=== PATIENT | female | born 2000 | race Caucasian/White ===

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

== ENCOUNTER 2022-10-05 15:19 | Emergency (ER) | payer BC, SELFPAY ==
[2022-10-05 15:33] VITALS: PULSE 125; RESP 18; TEMP 38.1; O2SAT 96; BMI 20.3
--- NOTE | 2022-10-05 16:26 | XRR_ITS ---
PROCEDURE INFORMATION: Exam: XR Chest Exam date and time: 10/05/2022 4:35 PM Age: 21 years old Clinical indication: Fever; Additional info: Fevers TECHNIQUE: Imaging protocol: Radiologic exam of the chest. Views: 1 view. COMPARISON: CR XR chest 1V portable [id number] 07/31/2020 11:37 AM FINDINGS: Lungs: Unremarkable. No consolidation. Pleural spaces: Unremarkable. No pleural effusion. No pneumothorax. Heart/Mediastinum: Unremarkable. No cardiomegaly. Bones/joints: Unremarkable. XR/XR chest 1V portable [id number] IMPRESSION: No acute findings.
--- NOTE | 2022-10-05 16:27 | ED_ITS ---
Documented by User: HERMINIO Benton 10/06/22 07:10 HPI - Abdominal Pain General: Chief Complaint: Abdominal Pain Stated Complaint: fever/NVD Time Seen by Provider: 10/05/22 15:57 Source: patient Mode of arrival: ambulatory Limitations: no limitations History of Present Illness: Patient is a nice 21-year-old female presents to ED today with a complaint of right-sided abdominal pain, frequent nausea and vomiting, fevers of up to 103, diffuse body aches, generally feeling unwell over the past 3 days or so. Patient states she was seen at a walk-in clinic in [place] and referred to the ED for further evaluation. Patient states she has not been able to keep anything down secondary to nausea and vomiting. She does report fairly normal bowel movements. She is not complaining of any urinary symptoms at this time. She states she does have a history of pyelonephritis. Denies sick contacts. She has had a mild cough. No other URI-like symptoms. Associated Symptoms: Reports chills, fever(s), nausea and vomiting; Denies dysuria, hematochezia, hematemesis and melena Review of Systems Const: Reports: fever(s), chills and body aches ENMT: Denies: throat pain, odynophagia, ear or mastoid pain, nasal discharge, nasal congestion or sinus pain Card: Denies: chest pain Resp: Reports: non-productive cough; Denies: dyspnea GI: Reports: abdominal pain, nausea and vomiting; Denies: hematemesis, hematochezia or melena : Reports: flank pain; Denies: difficulty voiding, dysuria, urinary frequency, urinary urgency, urinary hesitancy or pelvic pain Musc: Denies: neck pain, extremity pain, joint pain or joint swelling Skin/Breast: Denies: rash Neuro: Denies: headache(s) or dizziness PFSH ED PFSH: Medical History Painful menstruation Surgical History No pertinent past surgical history Family History Denies family history of Diabetes CAD (coronary artery disease) Psychiatric illness Chronic kidney disease (CKD) Lung disease Cancer Hypertension Stroke Social History Smoking and tobacco status: never smoked Physical Exam Const: COMMON NORMALS: no limitations and well nourished GENERAL APPEARANC E: cooperative HENMT: FACE & SINUS: normal facial exam and sinuses nontender Neck/C-Spine: COMMON NORMALS: no lymphadenopathy and no meningeal signs Resp: COMMON NORMALS: clear to auscultation bilaterally AUSCULTATION: clear to auscultation bilaterally Cardio: COMMON NORMALS: regular rhythm RHYTHM: regular rhythm Neuro: MENINGEAL SIGNS: Yes no meningeal signs Course ED course: Care transferred to Shahida Zuñiga PA-C at 1700. Symptoms/presentation suspicious for pyelo but UA is currently pending for confirmation. She is tachycardic with low grade fevers and a white count of over 19,000. She has been started on IV fluids and has been given pain/nausea meds. ES Vital Signs: Vital signs: Vital Signs Temperature 99.6 F 10/05/22 19:00 Pulse Rate 112 H 10/05/22 19:00 Respiratory Rate 18 10/05/22 16:44 Blood Pressure 115/61 10/05/22 19:00 Pulse Oximetry 93 10/05/22 19:00 Oxygen Delivery Me thod Room Air 10/05/22 15:33 MDM - Abdominal Pain Lab Data 10/05/22 16:17 10/05/22 16:17 Labs/Radiology: Radiology Impressions Chest X-Ray 10/05/22 16:26 IMPRESSION: No acute findings. Laboratory Results WBC 19.9 10^3/uL (4.5-13.0) H 10/05/22 16:17 RBC 4.45 10^6/uL (4.1-5.3) 10/05/22 16:17 Hgb 15.1 g/dL (11.5-15.3) 10/05/22 16:17 Hct 42.7 % (37.0-47.0) 10/05/22 16:17 MCV 96.0 fl (81-99) 10/05/22 16:17 MCH 33.9 pg (28.0-34.0) 10/05/22 16:17 MCHC 35.4 g/dL (30.0-36.0) 10/05/22 16:17 RDW 11.9 % (12.1-15.1) L 10/05/22 16:17 Plt Count 223 10^3/cmm (130-400) 10/05/22 16:17 MPV 9.4 fL (7.4-10.4) 10/05/22 16:17 Neut % (Auto) 84.2 % 10/05/22 16:17 Lymph % (Auto) 6.9 % 10/05/22 16:17 Drew % (Auto) 7.7 % 10/05/22 16:17 Eos % (Auto) 0.3 % 10/05/22 16:17 Baso % (Auto) 0.2 % 10/05/22 16:17 Neut # (Auto) 16.74 10^3/uL (1.8-8.0) H 10/05/22 16:17 Lymph # (Auto) 1.4 10^3/uL (1.5-6.5) L 10/05/22 16:17 Drew # (Auto) 1.5 10^3/uL (0.2-0.9) H 10/05/22 16:17 Eos # (Auto) 0.1 10^3/uL (0.0-0.8) 10/05/22 16:17 Baso # (Auto) 0.0 10^3/uL (0.0-0.1) 10/05/22 16:17 Nucleated RBC % (auto) 0 % 10/05/22 16:17 Nucleated RBCs # 0.0 /100WBC 10/05/22 16:17 Sodium 127 mmol/L (136-145) L 10/05/22 16:17 Potassium 3.5 mmol/L (3.5-5.1) 10/05/22 16:17 Chloride 92 mmol/L (98-107) L 10/05/22 16:17 Carbon Dioxide 20 mmol/L (22-29) L 10/05/22 16:17 Anion Gap 18.5 (5-19) 10/05/22 16:17 BUN 12 mg/dL (6-20) 10/05/22 16:17 Creatinine 1.0 mg/dL (0.5-0.9) H 10/05/22 16:17 GFR Calculation 71.4 mL/min (90-130) L 10/05/22 16:17 Glucose 101 mg/dL (65-115) 10/05/22 16:17 Calculated Osmolality 264 mOsm/kg (285-295) L 10/05/22 16:17 Lactic Acid 1.6 mmol/L (0.5-2.2) 10/05/22 16:17 Calcium 9.6 mg/dL (8.5-10.5) 10/05/22 16:17 Total Bilirubin 1.0 mg/dL (0.15-1.2) 10/05/22 16:17 AST 19 U/L (0-32) 10/05/22 16:17 ALT 18 U/L (0-33) 10/05/22 16:17 Alkaline Phosphatase 103 U/L (35-105) 10/05/22 16:17 Total Protein 8.1 g/dL (6.6-8.7) 10/05/22 16:17 Albumin 4.2 g/dL (3.5-5.2) 10/05/22 16:17 Globulin 3.9 g/dL (1.3-4.6) 10/05/22 16:17 Lipase 9 U/L (13-60) L 10/05/22 16:17 HCG, Qual Negative (Negative) 10/05/22 16:17 Urine Color Dark yellow (Yellow) 10/05/22 17:28 Urine Appearance Sl hazy (CLEAR) A 10/05/22 17:28 Urine pH 5 (5-7) 10/05/22 17:28 Ur Specific [place] 1.020 (1.005-1.030) 10/05/22 17:28 Urine Protein 1+ (Negative) H 10/05/22 17:28 Urine Glucose (UA) Norm (Normal) 10/05/22 17:28 Urine Ketones Negative (Negative) 10/05/22 17:28 Urine Blood 3+ (Negative) H 10/05/22 17:28 Urine Nitrate Negative (Negative) 10/05/22 17: Urine Bilirubin 1+ (Negative) H 10/05/22 17:28 Urine Urobilinogen 4 mg/dL (Negative) H 10/05/22 17:28 Ur Leukocyte Esterase 1+ (Negative) H 10/05/22 17:28 Urine RBC 5-10 /hpf (0-2) H 10/05/22 17:28 Urine WBC 15-25 /hpf (0-5) H 10/05/22 17:28 Ur Squamous Epith Cells 5-10 /hpf (0-5) H 10/05/22 17:28 Amorphous Sediment Not Reportable 10/05/22 17:28 Urine Bacteria 1+ /hpf (NONE) H 10/05/22 17:28 Discharge Plan Discharge Patient Disposition: Home Clinical Impression: Pyelonephritis, Vomiting Condition: Stable Prescriptions: New ondansetron 4 mg tablet,disintegrating 4 mg PO Q8H 5 Days Qty: 15 0RF ciprofloxacin HCl 500 mg tablet 500 mg PO BID 7 Days Qty: 14 0RF No Action medroxyprogesterone [Depo-Provera] 150 mg/mL syringe IM ondansetron 4 mg tablet,disintegrating 4 mg PO Q8H PRN (Reason: nausea and vomiting) Qty: 20 0RF Discharge Orders: Discharge ED (Routine); Ordered 10/05/22 Ordered By: Shahida Zuñiga Referrals: Praveena Milian MD [Primary Care Provider] - Discharge Diet: Usual diet Discharge Activity: Increase activity as tolerated Patient Instructions: Pyelonephritis Activity Restrictions/Additional Instructions: Evaluation today leads to concerns for a return of pyelonephritis. Your urinalysis does show signs of infection and your blood work also confirms infection. We will be culturing your urine to determine the bacterial cause and to make sure that the antibiotic you are on gives appropriate coverage. If for any reason we need to change your antibiotic we will notify you but, we do not want to wait until those labs post to begin treatment. You received 2 L of fluid here in the emergency department as well as pain medicine, antinausea medication, and your first round of antibiotics through your IV. I do encourage you to picking supervisor your medications this evening but, you do not need to take your first dose of antibiotics until the morning. Will be very important that you stay hydrated. Use your antinausea medication and sip on water or ice chips consistently throughout the day. You can use Tylenol for fever but, do exercise caution with use of NSAIDs such as ibuprofen, Aleve, or Advil for pain and fever as these medicines are filtered through your kidney. If you are unable to tolerate your medications or able to keep fluids down and stay hydrated you need to return back here to the emergency department. Otherwise, I do recommend a follow-up appointment with your primary care doctor later this week for recheck of your urine to make sure signs and symptoms of infection are resolved. Sign Out Sign Out Data: Patient Sign Out occurred on 10/05/22 at 17:03. Patient's care was discussed, and care was transferred from to HERMINIO Singh. Coding Level of Care Code ED Oncology Patient Navigator for Chg Fwd Documented by User: HERMINIO Singh 10/05/22 19:27 HPI - Abdominal Pain General: Chief Complaint: Abdominal Pain Stated Complaint: fever/NVD Time Seen by Provider: 10/05/22 15:57 History of Present Illness: Patient is a nice 21-year-old female presents to ED today with a complaint of right-sided abdominal pain, frequent nausea and vomiting, fevers of up to 103, diffuse body aches, generally feeling unwell over the past 3 days or so. Herminio house states she was seen at a walk-in clinic in [place] and referred to the ED for further evaluation. Patient states she has not been able to keep anything down secondary to nausea and vomiting. She does report fairly normal bowel movements. She reports dysuria. She states she does have a history of pyelonephritis. Denies sick contacts. She has had a mild cough. No other URI- like symptoms. Patient chart review showed similar presentation diagnosed with pyelonephritits. Review of Systems General: Reports: 10 or more systems reviewed and unremarkable except in HPI and below PFSH ED PFSH: Medical History Painful menstruation Surgical History No pertinent past surgical history Family History Denies family history of Diabetes CAD (coronary artery disease) Psychiatric illness Chronic kidney disease (CKD) Lung disease Cancer Hypertension Stroke Social History Smoking and tobacco status: never smoked Physical Exam Const: COMMON NORMALS: no acute distress, average body habitus, patient oriented x3 and alert HENMT: COMMON NORMALS: normocephalic, atraumatic, hearing grossly normal bilaterally and moist oral mucous membranes HEAD & SCALP: normocephalic and atraumatic Eye: COMMON NORMALS: Equal, round and reactive pupils present, EOMs intact bilaterally and conjunctivae normal CONJUNCTIVA: Yes conjunctivae normal PUPIL: Yes Equal, round and reactive pupils present Neck/C-Spine: COMMON NORMALS: no JVD Lymph: LYMPHATIC: no lymphadenopathy noted Resp: COMMON NORMALS: normal respiratory effort, No retractions and No use of accessory muscles Cardio: COMMON NORMALS: no JVD and regular rate RATE: regular rate GI: OTHER: Patient has diminished bowel sounds throughout. She is tender to palpation along her right lateral flank. Abdomen is soft. No right lower quadrant tenderness. Back/Pelvis: OTHER: Right CVA tenderness/right flank tenderness Extremity: COMMON NORMALS: normal to inspection, full ROM and capillary refill normal Neuro: COMMON NORMALS: patient oriented x3 SENSORIUM/ORIENTATION: Yes alert Psych: COMMON NORMALS: mental status grossly normal, cooperative, normal affect, speech normal and activity/motor behavior normal SPEECH: Yes normal speech Course Vital Signs: Vital signs: Vital Signs Temperature 99.6 F 10/05/22 19:00 Pulse Rate 112 H 10/05/22 19:00 Respiratory Rate 18 10/05/22 16:44 Blood Pressure 115/61 10/05/22 19:00 Pulse Oximetry 93 10/05/22 19:00 Oxygen Delivery Me thod Room Air 10/05/22 15:33 MDM - Abdominal Pain Medical Decision Making Patient care transferred from Andreea Szymanski RADIO MECHANIC at 1700. She indicated patient was being evaluated for a pyelonephritis and at this time, was found to have elevated white blood cell count, tachycardia, and fever. Patient had been vomiting and therefore was treated on arrival with IV fluids, IV Zofran, and morphine for her pain. We are still waiting for urine results. Once urinalysis posted, did show bacteria and white blood cells. Comparison of UA from today from her last pyelonephritis in 2022, shows similar findings. Blood work also v kerry similar to her last pyelonephritis. Patient was given a second bag of fluids and also provided her some Toradol for reported headache. Patient was given Reglan and p.o. challenge was administered. Patient tolerated both water and ice chips without vomiting. We provided IV Rocephin here in the emergency department and after consulting with Dr. Kent, we will discharge the patient home with more antinausea medication and oral antibiotics. However, patient was given strict return precautions should she continue having vomiting without ability to tolerate fluids or her medication. We will wait for her urine culture to post over the next 24 to 48 hours to ensure proper antibiotic coverag e. Patient can touch base with primary care later this week for follow-up as well. Differential Diagnosis Likely abdominal pain, calculus of kidney, constipation and gastroenteritis Lab Data 10/05/22 16:17 10/05/22 16:17 Labs/Radiology: Radiology Impressions Chest X-Ray 10/05/22 16:26 IMPRESSION: No acute findings. Laboratory Results WBC 19.9 10^3/uL (4.5-13.0) H 10/05/22 16:17 RBC 4.45 10^6/uL (4.1-5.3) 10/05/22 16:17 Hgb 15.1 g/dL (11.5-15.3) 10/05/22 16:17 Hct 42.7 % (37.0-47.0) 10/05/22 16:17 MCV 96.0 fl (81-99) 10/05/22 16:17 MCH 33.9 pg (28.0-34.0) 10/05/22 16:17 MCHC 35.4 g/dL (30.0-36.0) 10/05/22 16:17 RDW 11.9 % (12.1-15.1) L 10/05/22 16:17 Plt Count 223 10^3/cmm (130-400) 10/05/22 16:17 MPV 9.4 fL (7.4-10.4) 10/05/22 16:17 Neut % (Auto) 84.2 % 10/05/22 16:17 Lymph % (Auto) 6.9 % 10/05/22 16:17 Drew % (Auto) 7.7 % 10/05/22 16:17 Eos % (Auto) 0.3 % 10/05/22 16:17 Baso % (Auto) 0.2 % 10/05/22 16:17 Neut # (Auto) 16.74 10^3/uL (1.8-8.0) H 10/05/22 16:17 Lymph # (Auto) 1.4 10^3/uL (1.5-6.5) L 10/05/22 16:17 Drew # (Auto) 1.5 10^3/uL (0.2-0.9) H 10/05/22 16:17 Eos # (Auto) 0.1 10^3/uL (0.0-0.8) 10/05/22 16:17 Baso # (Auto) 0.0 10^3/uL (0.0-0.1) 10/05/22 16:17 Nucleated RBC % (auto) 0 % 10/05/22 16:17 Nucleated RBCs # 0.0 /100WBC 10/05/22 16:17 Sodium 127 mmol/L (136-145) L 10/05/22 16:17 Potassium 3.5 mmol/L (3.5-5.1) 10/05/22 16:17 Chloride 92 mmol/L (98-107) L 10/05/22 16:17 Carbon Dioxide 20 mmol/L (22-29) L 10/05/22 16:17 Anion Gap 18.5 (5-19) 10/05/22 16:17 BUN 12 mg/dL (6-20) 10/05/22 16:17 Creatinine 1.0 mg/dL (0.5-0.9) H 10/05/22 16:17 GFR Calculation 71.4 mL/min (90-130) L 10/05/22 16:17 Glucose 101 mg/dL (65-115) 10/05/22 16:17 Calculated Osmolality 264 mOsm/kg (285-295) L 10/05/22 16:17 Lactic Acid 1.6 mmol/L (0.5-2.2) 10/05/22 16:17 Calcium 9.6 mg/dL (8.5-10.5) 10/05/22 16:17 Total Bilirubin 1.0 mg/dL (0.15-1.2) 10/05/22 16:17 AST 19 U/L (0-32) 10/05/22 16:17 ALT 18 U/L (0-33) 10/05/22 16:17 Alkaline Phosphatase 103 U/L (35-105) 10/05/22 16:17 Total Protein 8.1 g/dL (6.6-8.7) 10/05/22 16:17 Albumin 4.2 g/dL (3.5-5.2) 10/05/22 16:17 Globulin 3.9 g/dL (1.3-4.6) 10/05/22 16:17 Lipase 9 U/L (13-60) L 10/05/22 16:17 HCG, Qual Negative (Negative) 10/05/22 16:17 Urine Color Dark yellow (Yellow) 10/05/22 17:28 Urine Appearance Sl hazy (CLEAR) A 10/05/22 17:28 Urine pH 5 (5-7) 10/05/22 17:28 Ur Specific [place] 1.020 (1.005-1.030) 10/05/22 17:28 Urine Protein 1+ (Negative) H 10/05/22 17:28 Urine Glucose (UA) Norm (Normal) 10/05/22 17:28 Urine Ketones Negative (Negative) 10/05/22 17:28 Urine Blood 3+ (Negative) H 10/05/22 17:28 Urine Nitrate Negative (Negative) 10/05/22 17:28 Urine Bilirubin 1+ (Negative) H 10/05/22 17:28 Urine Urobilinogen 4 mg/dL (Negative) H 10/05/22 17:28 Ur Leukocyte Esterase 1+ (Negative) H 10/05/22 17:28 Urine RBC 5-10 /hpf (0-2) H 10/05/22 17:28 Urine WBC 15-25 /hpf (0-5) H 10/05/22 17:28 Ur Squamous Epith Cells 5-10 /hpf (0-5) H 10/05/22 17:28 Amorphous Sediment Not Reportable 10/05/22 17:28 Urine Bacteria 1+ /hpf (NONE) H 10/05/22 17:28 Discharge Plan Discharge Patient Disposition: Home Clinical Impression: Pyelonephritis, Vomiting Condition: Stable Prescriptions: New ondansetron 4 mg tablet,disintegrating 4 mg PO Q8H 5 Days Qty: 15 0RF ciprofloxacin HCl 500 mg tablet 500 mg PO BID 7 Days Qty: 14 0RF No Action medroxyprogesterone [Depo-Provera] 150 mg/mL syringe IM ondansetron 4 mg tablet,disintegrating 4 mg PO Q8H PRN (Reason: nausea and vomiting) Qty: 20 0RF Discharge Orders: Discharge ED (Routine); Ordered 10/05/22 Ordered By: Shahida Zuñiga Referrals: Praveena Milian MD [Primary Care Provider] - Discharge Diet: Usual diet Discharge Activity: Increase activity as tolerated Patient Instructions: Pyelonephritis Activity Restrictions/Additional Instructions: Evaluation today leads to concerns for a return of pyelonephritis. Your urinalysis does show signs of infection and your blood work also confirms infection. We will be culturing your urine to determine the bacterial cause and to make sure that the antibiotic you are on gives appropriate coverage. If for any reason we need to change your antibiotic we will notify you but, we do not want to wait until those labs post to begin treatment. You received 2 L of fluid here in the emergency department as well as pain medicine, antinausea medication, and your first round of antibiotics through your IV. I do encourage you to picking supervisor your medications this evening but, you do not need to take your first dose of antibiotics until the morning. Will be very important that you stay hydrated. Use your antinausea medication and sip on water or ice chips consistently throughout the day. You can use Tylenol for fever but, do exercise caution with use of NSAIDs such as ibuprofen, Aleve, or Advil for pain and fever as these medicines are filtered through your kidney. If you are unable to tolerate your medications or able to keep fluids down and stay hydrated you need to return back here to the emergency department. Otherwise, I do recommend a follow-up appointment with your primary care doctor later this week for recheck of your urine to make sure signs and symptoms of infection are resolved. Sign Out Sign Out Data: Patient Sign Out occurred on 10/05/22 at 17:03. Patient's care was discussed, and care was transferred from to HERMINIO Singh. Coding Level of Care Code ED Oncology Patient Navigator for Ava Lopez
[2022-10-05 16:34] LABS: Basophils % 0.2 %; Eosinophils # 0.1 10^3/uL (0.0-0.8); Eosinophils % 0.3 %; Hematocrit 42.7 % (37.0-47.0); Hemoglobin 15.1 g/dL (11.5-15.3); Lymphocytes # 1.4 10^3/uL (1.5-6.5); Lymphocytes % 6.9 %; Mean Corpuscular HGB Conc 35.4 g/dL (30.0-36.0); Mean Corpuscular Hemoglobin 33.9 pg (28.0-34.0); Mean Platelet Volume 9.4 fL (7.4-10.4); Monocytes # 1.5 10^3/uL (0.2-0.9); Monocytes % 7.7 %; Neutrophils # 16.74 10^3/uL (1.8-8.0); Neutrophils % 84.2 %; Nucleated Red Blood Cells % 0 %; Platelet Count 223 10^3/cmm (130-400); Red Blood Count 4.45 10^6/uL (4.1-5.3); Red Cell Distribution Width 11.9 % (12.1-15.1); White Blood Count 19.9 10^3/uL (4.5-13.0)
[2022-10-05] MEDS: sodium chloride 0.9% 1,000 ML 999 ML IV ×2 (16:40→18:01)
[2022-10-05] MEDS: ondansetron 2 mg/ML SDV 2 mL 4 MG IVP (16:43)
[2022-10-05 16:44] VITALS: RESP 18
[2022-10-05] MEDS: morphine 4 mg/mL SDV 1 mL IVP (16:44)
[2022-10-05 16:49] LABS: Alanine Aminotransferase 18 U/L (0-33); Albumin Level 4.2 g/dL (3.5-5.2); Alkaline Phosphatase 103 U/L (35-105); Anion Gap 18.5 (5-19); Aspartate Amino Transferase 19 U/L (0-32); Blood Urea Nitrogen 12 mg/dL (6-20); Calcium 9.6 mg/dL (8.5-10.5); Carbon Dioxide 20 mmol/L (22-29); Chloride 92 mmol/L (98-107); Globulin 3.9 g/dL (1.3-4.6); Glomerular Filtration Rate 71.4 mL/min (90-130); Glucose 101 mg/dL (65-115); Lipase 9 U/L (13-60); Osmolality Calculated 264 mOsm/kg (285-295); Potassium 3.5 mmol/L (3.5-5.1); Sodium 127 mmol/L (136-145); Total Protein 8.1 g/dL (6.6-8.7)
[2022-10-05 16:51] LABS: Lactic Sepsis W/Reflex 1.6 mmol/L (0.5-2.2)
[2022-10-05 16:54] LABS: HCG, Serum Qual Negative (Negative)
[2022-10-05] MEDS: ketorolac 30 mg/mL INJ IVP (18:02)
[2022-10-05] MEDS: metoclopramide 5 mg/mL SDV 2 mL 10 MG IVP (18:02)
[2022-10-05 18:08] LABS: Glucose Urine UA Norm (Normal); Protein Urine 1+ (Negative); Urine Appearance SL Hazy (CLEAR); Urine Color Dark Yellow (Yellow); pH Urine 5 (5-7)
[2022-10-05 18:09] LABS: Add Urine Culture? Yes; Add Urine Microscopic? YES; Bacteria Urine 1+ /hpf; Bilirubin Urine 1+ (Negative); Blood Urine 3+ (Negative); Ketones Urine Negative (Negative); Leukocyte Esterase Urine 1+ (Negative); Nitrate Urine Negative (Negative); Urobilinogen Urine 4 mg/dL (Negative); WBC Urine 15-25 /hpf (0-5)
[2022-10-05 18:36] VITALS: BP 119/72; O2SAT 93
[2022-10-05] MEDS: cefTRIAXone 1,000 MG in sodium chloride 0.9% (plus) 50 ML 100 MG IV (18:36)
[2022-10-05 19:00] VITALS: BP 115/61; PULSE 112; TEMP 37.6; O2SAT 93
== END 2022-10-05 19:43 | disposition home or self-care (01) ==
PROVIDERS: Physician Assistant; Emergency Provider Physician Assistant; PCP Family Medicine
DX: N12 Tubulo-interstitial nephritis, not specified as acute or chronic (principal); R11.10 Vomiting, unspecified
CPT/HCPCS: 71045; 80053; 81001; 83605; 83690; 84703; 85025; 87086; 96361; 96365; 96375; 99284; J0696; J1885; J2270; J2405; J2765; J7030

== ENCOUNTER 2024-07-22 07:38 | Emergency (ER) | payer MEDICAID, SELFPAY ==
[2024-07-22 07:45] VITALS: BP 134/74; PULSE 100; RESP 18; TEMP 36.8; O2SAT 100
--- NOTE | 2024-07-22 08:12 | W.ED.GENADLT ---
HPI - General Adult General: Chief complaint: Vaginal Bleeding Stated complaint: 14 wk preg/bleeding Time Seen by Provider: 07/22/24 07:45 History of Present Illness: 23-year-old female presents emergency room with complaint of 14 weeks gestation. She is complaining of vaginal bleeding and hematuria. It began earlier this morning she was seen at [facility] and ultrasound was done that advised admission and she left AMA to present here. She sees a doctor from [facility] in [place] clinic has had some care and previous ultrasound. She has not had any fever sweats or chills she has had problems with recurrent UTIs in the past. Up till now has not had difficulty with his . Associated symptoms: Deny chest pain, dyspnea or rash Related Data Home Medications ?Medication ?Instructions ?Recorded ?Confirmed aspirin 81 mg tablet,delayed 81 mg PO DAILY 07/22/24 07/22/24 release polyethylene glycol 3350 17 17 g PO BID PRN constapation 07/22/24 07/22/24 gram/dose oral powder (ClearLax) vitamin with calcium 1 tab PO DAILY 07/22/24 07/22/24 no.72-iron 27 mg-folic acid 1 mg tablet ( Vitamins Plus Low Iron) promethazine 12.5 mg tablet 12.5 mg PO TID PRN Nausea And 07/22/24 07/22/24 Vomiting Previous Rx's ?Medication ?Instructions ?Recorded nitrofurantoin 100 mg PO BID 5 days #10 caps 07/22/24 monohydrate/macrocrystals 100 mg capsule (Macrobid) Allergies Allergy/AdvReac Type Severity Reaction Status Date / Time No Known Allergies Allergy Verified 09/01/22 08:53 Review of Systems Const: Denies: fever(s) or chills Card: Denies: chest pain Resp: Denies: dyspnea GI: Denies: abdominal pain : Denies: dysuria, urinary frequency or urinary urgency Musc: Denies: neck pain or back pain Skin/Breast: Denies: rash PFSH ED PFSH: Medical History Painful menstruation Surgical History No pertinent past surgical history Family History Denies family history of Diabetes CAD (coronary artery disease) Psychiatric illness Chronic kidney disease (CKD) Lung disease Cancer Hypertension Stroke Social History Smoking and tobacco/nicotine status: never used tobacco/nicotine Physical Exam Const: COMMON NORMALS: no acute distress GENERAL APPEARANCE: cooperative and comfortable ORIENTATION/CONSCIOUSNESS: Yes awake, Yes oriented to person, Yes oriented to place and Yes oriented to time HENMT: COMMON NORMALS: normocephalic, atraumatic and hearing grossly normal bilaterally HEAD & SCALP: normocephalic and atraumatic Resp: COMMON NORMALS: normal respiratory effort, No retractions, No use of accessory muscles and clear to auscultation bilaterally AUSCULTATION: clear to auscultation bilaterally Cardio: COMMON NORMALS: regular rate, regular rhythm and No murmurs present (Cardio) RATE: regular rate RHYTHM: regular rhythm GI: COMMON NORMALS: No hepatosplenomegaly present AUSCULTATION: Yes normoactive bowel sounds PALPATION: Yes Tenderness to palpation present (GI) (Mild suprapubic), No Guarding due to palpation present (GI) and Yes No hepatosplenomegaly present : OTHER: With nurse present patient placed in dorsolithotomy position speculum introduced mucousy blood noted within the vaginal canal there is scant bleeding from the cervix there is still significant amount of mucus within the cervix. No active bleeding at this time no other vaginal lacerations or injuries as a source of bleeding. GC chlamydia and wet mount done Extremity: COMMON NORMALS: normal to inspection, capillary refill normal, no clubbing, cyanosis or edema, no calf tenderness and no pedal edema Neuro: SENSORIUM/ORIENTATION: Yes oriented to person, Yes oriented to place and Yes oriented to time Skin: COMMON NORMALS: no rashes or lesions noted GENERAL SKIN EXAM: no rashes or lesions noted Course Vital Signs: Vital signs: Vital Signs Temperature 98.2 F 07/22/24 07:45 Pulse Rate 77 07/22/24 11:46 Respiratory Rate 17 07/22/24 10:06 Blood Pressure 137/78 07/22/24 11:46 Pulse Oximetry 96 07/22/24 11:46 Oxygen Delivery Me thod Room Air 07/22/24 07:45 MDM - General Adult Medical Decision Making Old records from [facility] visit today were obtained. Reviewed particularly the ultrasound which showed no problems or complications cervical length was normal (5.13 cm)there was no sign of any bleeding good heart tones 180s. Gestational age by ultrasound 15 weeks and 1 day with an EDC of 01/12/2025. No free fluid in the pelvis no mention of subchorionic hemorrhage. Patient is Rh+. On mini cath she does have a large amount of blood we irrigated the bladder and bleeding ceased. She is not really having urinary tract symptoms which she has had frequently in the past she only has trace leukocyte Estrace no nitrates and almost no white blood cells. Pelvic exam there was a small amount of mucousy blood from the cervix no active bleeding. Discussed with the patient the findings. I also discussed with the on-call OB. They suspect this may be a threatened AB. We can discharge patient home supportive cares pelvic rest. Additionally Andreea cover with antibiotics we gave her ceftriaxone here will discharge home with Macrodantin she should follow-up with her primary OB doctor in 2 days. Return if she has worsening bleeding. Lab Data 07/22/24 07:58 07/22/24 07:58 Radiology Impressions Renal Ultrasound 07/22/24 09:03 IMPRESSION: 1. The kidneys are unremarkable without detectable mass, without detectable calcific density and without hydronephrosis 2. Bladder wall thickening which appears more prominent anteriorly. A mass in this location can not be excluded but would be unusual in a patient of this age. Follow-up bladder ultrasound recommended with the attention to the anterior bladder wall. Floating debris noted in the bladder. Laboratory Results WBC 15.49 10^3/uL (3.29-11.43) H 07/22/24 07:58 RBC 3.28 10^6/uL (3.85-5.65) L 07/22/24 07:58 Hgb 11.20 g/dL (11.27-16.99) L 07/22/24 07:58 Hct 33.8 % (36-47) L 07/22/24 07:58 MCV 103.0 fl (85-98) H 07/22/24 07:58 MCH 34.1 pg (27-33) H 07/22/24 07:58 MCHC 33.1 g/dL (30-55) 07/22/24 07:58 RDW 12.7 % (12.1-15.1) 07/22/24 07:58 Plt Count 207 10^3/cmm (157-399) 07/22/24 07:58 MPV 9.5 fL (7.4-10.4) 07/22/24 07:58 Neut % (Auto) 91.6 % 07/22/24 07:58 Lymph % (Auto) 5.3 % 07/22/24 07:58 Hendricks % (Auto) 2.1 % 07/22/24 07:58 Eos % (Auto) 0.1 % 07/22/24 07:58 Baso % (Auto) 0.3 % 07/22/24 07:58 Neut # (Auto) 14.21 10^3/uL (1.8-7.7) H 07/22/24 07:58 Lymph # (Auto) 0.8 10^3/uL (0.8-4.8) 07/22/24 07:58 Hendricks # (Auto) 0.3 10^3/uL (0.2-0.9) 07/22/24 07:58 Eos # (Auto) 0.0 10^3/uL (0.0-0.8) 07/22/24 07:58 Baso # (Auto) 0.0 10^3/uL (0.0-0.1) 07/22/24 07:58 Nucleated RBC % (auto) 0 % 07/22/24 07:58 Nucleated RBCs # 0.0 /100WBC 07/22/24 07:58 Sodium 135 mmol/L (136-145) L 07/22/24 07:58 Potassium 3.7 mmol/L (3.5-5.1) 07/22/24 07:58 Chloride 103 mmol/L (98-107) 07/22/24 07:58 Carbon Dioxide 20 mmol/L (22-29) L 07/22/24 07:58 Anion Gap 15.7 (5-19) 07/22/24 07:58 BUN 8 mg/dL (6-20) 07/22/24 07:58 Creatinine 0.5 mg/dL (0.5-0.9) 07/22/24 07:58 GFR Calculation 155.7 mL/min (90-130) H 07/22/24 07:58 Glucose 106 mg/dL (65-115) 07/22/24 07:58 Calculated Osmolality 279 mOsm/kg (285-295) L 07/22/24 07:58 Calcium 8.8 mg/dL (8.5-10.5) 07/22/24 07:58 Total Bilirubin 0.2 mg/dL (0.15-1.2) 07/22/24 07:58 AST 17 U/L (0-32) 07/22/24 07:58 ALT 12 U/L (0-33) 07/22/24 07:58 Alkaline Phosphatase 50 U/L (35-105) 07/22/24 07:58 Total Protein 6.7 g/dL (6.6-8.7) 07/22/24 07:58 Albumin 3.9 g/dL (3.5-5.2) 07/22/24 07:58 Globulin 2.8 g/dL (1.3-4.6) 07/22/24 07:58 Ser , Semi-Qnt 43652.00 mIU/mL 07/22/24 07:58 Urine Color Red (Yellow) A 07/22/24 08:26 Urine Appearance Cloudy (CLEAR) A 07/22/24 08:26 Urine pH 6.0 (5-7) 07/22/24 08:26 Ur Specific Altha 1.020 (1.005-1.030) 07/22/24 08:26 Urine Protein Trace (Negative) A 07/22/24 08:26 Urine Glucose (UA) Negative (Normal) 07/22/24 08:26 Urine Ketones Negative (Negative) 07/22/24 08:26 Urine Blood 3+ (Negative) A 07/22/24 08:26 Urine Nitrate Negative (Negative) 07/22/24 08:26 Urine Bilirubin Negative (Negative) 07/22/24 08:26 Prot Sulfosalicylic Acd Cancelled 07/22/24 07:47 Urine Urobilinogen 1.0 mg/dL (Negative) 07/22/24 08:26 Ur Leukocyte Esterase Trace (Negative) A 07/22/24 08:26 Urine RBC >100 /hpf (0-2) H 07/22/24 08:26 Urine WBC 0-5 /hpf (0-5) 07/22/24 08:26 Ur Squamous Epith Cells 0-5 /hpf (0-5) 07/22/24 08:26 Ur Transition Epith Cell Cancelled 07/22/24 07:47 Ur Renal Epithelial Cell Cancelled 07/22/24 07:47 Calcium Oxalate Crystal Cancelled 07/22/24 07:47 Uric Acid Crystals Cancelled 07/22/24 07:47 Triple Phos Crystals Cancelled 07/22/24 07:47 Other Crystals Cancelled 07/22/24 07:47 Amorphous Sediment Not Reportable 07/22/24 08:26 Urine Bacteria None seen /hpf (NONE) 07/22/24 08:26 Hyaline Casts 0.81 /lpf 07/22/24 08:26 Fine Granular Casts Cancelled 07/22/24 07:47 Coarse Granular Casts Cancelled 07/22/24 07:47 RBC Casts Cancelled 07/22/24 07:47 Other Casts Cancelled 07/22/24 07:47 Urine Mucus Cancelled 07/22/24 07:47 Urine Trichomonas Cancelled 07/22/24 07:47 Urine Yeast Cancelled 07/22/24 07:47 Urine Sperm Cancelled 07/22/24 07:47 Ur Oval Fat Bodies Cancelled 07/22/24 07:47 Rho(D) Type Rh positive 07/22/24 07:58 All radiology interpretation(s) finalized by discharge Discharge Plan Discharge Patient Disposition: Home Clinical Impression: Threatened miscarriage, Hematuria Condition: Stable Prescriptions: New nitrofurantoin monohyd/m-cryst [Macrobid] 100 mg capsule 100 mg PO BID 5 Days Qty: 10 0RF Rx Instructions: must administer with a meal/food No Action promethazine 12.5 mg tablet 12.5 mg PO TID PRN (Reason: Nausea And Vomiting) aspirin 81 mg tablet,delayed release (DR/EC) 81 mg PO DAILY polyethylene glycol 3350 [ClearLax] 17 gram/dose powder 17 g PO BID PRN (Reason: constapation) Vitamin Plus Low Iron 27 mg iron- 1 mg tablet 1 tab PO DAILY Discharge Orders: Discharge ED (Routine); Ordered 07/22/24 Ordered By: Hong Combs Referrals: Praveena Milian MD [Primary Care Provider] - Discharge Diet: Usual diet Discharge Activity: Resume usual activity Patient Instructions: Opioid Safety, Pain Management Activity Restrictions/Additional Instructions: Thank you for choosing [facility] for your healthcare needs today. It is very important that you follow up as instructed or that you return to the Emergency Department should you have concerns or if your condition changes or worsens in any way. You are seen emergency room with complaints of vaginal bleeding and hematuria. A catheter specimen urine did show significant on the blood in your urine however able to get the bleeding to go away after irrigating the bladder. There were minimal signs of infection we did give you a single dose of antibiotics here and recommend starting on oral antibiotics for the next 5 days. On pelvic exam there was some bleeding in the vaginal canal and from the cervix. heart tones were normal and the ultrasound done at [facility] was reviewed and did not show any sign of subchorionic bleeding. Recommend that you remain at pelvic rest (nothing per vagina). You should follow-up with your cold press loader in 2 days. If you have worsening bleeding return. It is possible that you could miscarry however at this stage of the there are no interventions that could prevent this. Print Language: Belarusian Coding Level of Care Code ED Mushroom Packer for Ava Lopez
[2024-07-22 08:16] LABS: Basophils % 0.3 %; Eosinophils % 0.1 %; Hematocrit 33.8 % (36-47); Lymphocytes # 0.8 10^3/uL (0.8-4.8); Lymphocytes % 5.3 %; Mean Corpuscular HGB Conc 33.1 g/dL (30-55); Mean Corpuscular Hemoglobin 34.1 pg (27-33); Mean Platelet Volume 9.5 fL (7.4-10.4); Monocytes # 0.3 10^3/uL (0.2-0.9); Monocytes % 2.1 %; Neutrophils # 14.21 10^3/uL (1.8-7.7); Neutrophils % 91.6 %; Nucleated Red Blood Cells % 0 %; Platelet Count 207 10^3/cmm (157-399); Red Blood Count 3.28 10^6/uL (3.85-5.65); Red Cell Distribution Width 12.7 % (12.1-15.1); White Blood Count 15.49 10^3/uL (3.29-11.43)
[2024-07-22 08:34] LABS: Bilirubin Urine Negative (Negative); Blood Urine 3+ (Negative); Glucose Urine UA Negative (Normal); Ketones Urine Negative (Negative); Leukocyte Esterase Urine Trace (Negative); Nitrate Urine Negative (Negative); Protein Urine Trace (Negative); Urine Appearance Cloudy (CLEAR)
[2024-07-22 08:36] LABS: Alanine Aminotransferase 12 U/L (0-33); Albumin Level 3.9 g/dL (3.5-5.2); Alkaline Phosphatase 50 U/L (35-105); Anion Gap 15.7 (5-19); Aspartate Amino Transferase 17 U/L (0-32); Blood Urea Nitrogen 8 mg/dL (6-20); Calcium 8.8 mg/dL (8.5-10.5); Carbon Dioxide 20 mmol/L (22-29); Chloride 103 mmol/L (98-107); Creatinine Clr Calc Pharmacy 172.4675; Globulin 2.8 g/dL (1.3-4.6); Glomerular Filtration Rate 155.7 mL/min (90-130); Glucose 106 mg/dL (65-115); Osmolality Calculated 279 mOsm/kg (285-295); Potassium 3.7 mmol/L (3.5-5.1); Sodium 135 mmol/L (136-145); Total Bilirubin 0.2 mg/dL (0.15-1.2); Total Protein 6.7 g/dL (6.6-8.7)
[2024-07-22 08:39] LABS: Add Urine Microscopic? YES; Bacteria Urine None Seen /hpf; Hyaline Casts Urine 0.81 /lpf; RBC Urine >100 /hpf (0-2); Squamous Epithelial Cell Urine 0-5 /hpf (0-5); WBC Urine 0-5 /hpf (0-5)
[2024-07-22 08:45] LABS: Urine Color Red (Yellow)
[2024-07-22 08:49] LABS: UA Slide Review UA Slide Review Perf
[2024-07-22 08:50] LABS: Add Urine Culture? Yes
--- NOTE | 2024-07-22 09:03 | USR_ITS ---
PROCEDURE INFORMATION: Exam: US Retroperitoneal, Complete, Kidneys and Bladder Exam date and time: 07/22/2024 9:19 AM Age: 23 years old Clinical indication: Other: Hematuria; ; Additional info: Hematuria, 14 wks gestation TECHNIQUE: Imaging protocol: Real-time ultrasound of the retroperitoneum with image documentation. Complete exam focused on the bilateral kidneys and urinary bladder. COMPARISON: US abdomen limited [id number] 07/31/2018 9:35 AM FINDINGS: Right kidney: The right kidney measures 10.0 cm in length Left kidney: The left kidney measures 10.4 cm in length. No renal mass or renal calcific density is detected. There is no hydronephrosis. No renal calculus is detected. Renal cortical echotexture and thickness appear normal Urinary bladder: There is bladder wall thickening. This appears more prominent anteriorly. A mass in this location can not completely be excluded but would be unusual in a patient of this age. Recommend follow-up ultrasound. Rl There appears to be some floating debris in the bladder uterus is partially included on this study. Review of fetus was not performed as part of the study US/US renal BI* [id number] IMPRESSION: 1. The kidneys are unremarkable without detectable mass, without detectable calcific density and without hydronephrosis 2. Bladder wall thickening which appears more prominent anteriorly. A mass in this location can not be excluded but would be unusual in a patient of this age. Follow-up bladder ultrasound recommended with the attention to the anterior bladder wall. Floating debris noted in the bladder.
[2024-07-22] MEDS: cefTRIAXone 1,000 mg SDV 1000 MG IVP (09:07)
[2024-07-22 10:06] VITALS: RESP 17; O2SAT 99
[2024-07-22] MEDS: morphine 4 mg/mL SDV 1 mL IVP (10:06)
[2024-07-22 10:23] VITALS: BP 146/80; PULSE 80; O2SAT 98
[2024-07-22 11:00] VITALS: BP 137/78; PULSE 73; O2SAT 98
[2024-07-22 11:46] VITALS: BP 137/78; PULSE 77; O2SAT 96
== END 2024-07-22 11:47 | disposition home or self-care (01) ==
PROVIDERS: Emergency Provider Family Medicine; PCP Family Medicine
DX: O20.0 Threatened abortion (principal); Z3A.15 15 weeks gestation of pregnancy; R31.9 Hematuria, unspecified
CPT/HCPCS: 36415; 76770; 80053; 81001; 84702; 85025; 87040; 87086; 87210; 87491; 87591; 96374; 96375; 99284; J0696; J2270

== ENCOUNTER 2024-08-07 12:41 | Emergency (ER) | payer MEDICAID, SELFPAY ==
[2024-08-07 12:47] VITALS: BP 119/76; PULSE 85; TEMP 36.8; O2SAT 98
--- NOTE | 2024-08-07 13:06 | US_ITS ---
WS: [id number] Limited obstetrical ultrasound. HISTORY: Vaginal bleeding. COMPARISON: None. Single intrauterine gestation is present in breech position. Heart rate 163 bpm. Anterior placenta. Beginning along the inferior placenta is a large complex collection which extends inferiorly and covers the cervical os. This collection extends posterior to a portion of the placenta. Collection covers the cervical os and is consistent with a large marginal placental abruption. Cervix is closed at 3.3 cm. The placenta is anterior and questionable smaller caliber. Portion of the marginal bleed extends separates the placenta from the uterine wall. Umbilical cord is also noted to be elongated and is closely associated with the neck and into lines between the legs of the fetus. This is not an anatomic scan but the umbilical cord is not coiled. Increased risk of placental abruption is noted within hypocoiled and of the umbilical cord. US/US OB >= 14 weeks fetus [id number] IMPRESSION: 1. Large marginal retroplacental abruption with hematoma. Abruption extends ac ross the cervical os and posterior to the placenta. There is partial separation of the placenta with the uterine wall. Recommend close evaluation by patient's electronic equipment set up operator. 2. Breech. 3. Normal heart rate. 4. Elongated umbilical cord appears uncoiled. There is an increased risk for p lacental abruption with an uncoiled umbilical cord. 5. Elongated umbilical cord closely associated with the neck and intertw ining between the legs.
--- NOTE | 2024-08-07 13:14 | W.ED.FEMALGU ---
Documented by User: DAHIANA Benton 08/07/24 15:16 HPI - Female Genitourinary General: Chief complaint: Vaginal Bleeding Stated complaint: 17 weeks preg, abb pain, vaginal bleeding Time Seen by Provider: 08/07/24 12:58 Source: patient and family Mode of arrival: ambulatory Limitations: no limitations History of Present Illness: Patient is a 23-year-old female at approximately 17 weeks here for complaints of vaginal bleeding/discharge that started 2-3 days ago. She describes it as dark brown in color. She states she will have to change approximately 2 panty liners a day. She notices it more when she wipes after urinating. She was seen here at our facility on 07/22 for similar symptoms. At that time-she had had an outside ultrasound performed at [facility] which was unremarkable. She had workup here including UA culture which came back negative. Wet prep was collected and unremarkable. Gonorrhea and Chlamydia reportedly collected however no results in her chart. I contacted lab who stated this test was never ran. She is not having any pelvic pain currently. States she receives OB care through a nurse practitioner and [facility]. Next visit is in approximately 2 weeks for her 20-week OB appointment and scan. She is having a small amount of cramping. MD elicited complaint: vaginal bleeding and vaginal discharge Onset (ago): hour(s) Severity: mild Vaginal discharge: other (dark brown) Exacerbating factors: none Relieving factors: none Associated symptoms: Deny abdominal pain, headache(s) or nausea Treatment prior to arrival: none Patient : Yes Related Data Home Medications ?Medication ?Instructions ?Recorded ?Confirmed aspirin 81 mg tablet,delayed 81 mg PO DAILY 07/22/24 08/07/24 release polyethylene glycol 3350 17 17 g PO BID PRN constapation 07/22/24 08/07/24 gram/dose oral powder (ClearLax) vitamin with calcium 1 tab PO DAILY 07/22/24 08/07/24 no.72-iron 27 mg-folic acid 1 mg tablet ( Vitamins Plus Low Iron) promethazine 12.5 mg tablet 12.5 mg PO TID PRN Nausea And 07/22/24 08/07/24 Vomiting Allergies Allergy/AdvReac Type Severity Reaction Status Date / Time No Known Allergies Allergy Verified 08/07/24 12:52 Review of Systems Const: Denies: fever(s), chills, body aches, fatigue or malaise Card: Denies: chest pain Resp: Denies: dyspnea GI: Denies: abdominal pain, nausea, vomiting, diarrhea or change in bowel habits : Reports: vaginal bleeding; Denies: flank pain, difficulty voiding, dysuria, urinary frequency, urinary urgency or urinary hesitancy Musc: Denies: neck pain, back pain, extremity pain, extremity swelling, joint swelling or joint redness Skin/Breast: Denies: rash Neuro: Denies: headache(s), numbness in extremities, weakness in extremities, sensory changes or dizziness PFSH ED PFSH: Medical History Painful menstruation Surgical History (Reviewed 08/07/24 @ :45 by DAHIANA Benton) No pertinent past surgical history Family History Denies family history of Diabetes CAD (coronary artery disease) Psychiatric illness Chronic kidney disease (CKD) Lung disease Cancer Hypertension Stroke Social History Smoking and tobacco/nicotine status: never used tobacco/nicotine Physical Exam Const: COMMON NORMALS: no acute distress, average body habitus, patient oriented x3, no limitations, healthy appearing, alert and well nourished Resp: COMMON NORMALS: normal respiratory effort and clear to auscultation bilaterally AUSCULTATION: clear to auscultation bilaterally Cardio: COMMON NORMALS: regular rate and regular rhythm RATE: regular rate RHYTHM: regular rhythm GI: COMMON NORMALS: Normal to inspection, nondistended, normoactive bowel sounds present, Soft to palpation, No hepatosplenomegaly present, no masses and no bruits INSPECTION: Yes normal to inspection and Yes gravid abdomen AUSCULTATION: Yes normoactive bowel sounds PALPATION: Yes Soft to palpation, No Tenderness to palpation present (GI), No Guarding due to palpation present (GI), No Rigid due to palpation and Yes No hepatosplenomegaly present : COMMON NORMALS: Yes no CVA tenderness BLADDER/KIDNEY EXAM: Yes no CVA tenderness Back/Pelvis: COMMON NORMALS: no CVA tenderness and thoracic and lumbar spine normal to inspection Extremity: GENERAL: Yes normal exam except as noted Neuro: LISS COMA SCALE: document GCS findings [place] coma scale eye opening: Spontaneous [place] coma scale verbal response: Orientated [place] coma scale motor response: Obey commands Liss coma scale total score: 15 COMMON NORMALS: patient oriented x3, moves all extremities, no focal motor deficits and no sensory deficits noted SENSORIUM/ORIENTATION: Yes alert Skin: COMMON NORMALS: no rashes or lesions noted GENERAL SKIN EXAM: no rashes or lesions noted Course Consultations: Consultation #1: Dr. Robledo-recommending pelvic/bed rest, 81mg aspirin and she needs to follow up with OB Consultation #2: Dr. Salinas-graciously will see patient in office on Wednesday, pelvic rest, nothing heavy Vital Signs: Vital signs: Vital Signs Temperature 98.3 F 08/07/24 12:47 Pulse Rate 99 08/07/24 14:30 Blood Pressure 110/69 08/07/24 14:30 Pulse Oximetry 97 08/07/24 14:30 Oxygen Delivery Me thod Room Air 08/07/24 14:30 MDM - Female Medical Decision Making Patient was found to have a large marginal retroplacental abruption with hematoma expect OB on-call, Dr. Robledo who recommended bed/pelvic rest and aspirin and to have her follow-up with an proposal consultant as soon as possible. I did speak to Dr. Salinas who is graciously willing to see patient on Wednesday. He had recommended pelvic rest and no heavy lifting. He will order OB/coagulopathy labs on Wednesday and did not recommend anything further from an emergency standpoint. Discussed case with Dr. Combs who agrees with care plan at this time. Medical Records I reviewed the patient's medical records. Lab Data I reviewed the patient's lab results. Radiology Impressions Ultrasound 08/07/24 13:06 IMPRESSION: 1. Large marginal retroplacental abruption with hematoma. Abruption extends across the cervical os and posterior to the placenta. There is partial separation of the placenta with the uterine wall. Recommend close evaluation by patient's proposal consultant. 2. Breech. 3. Normal heart rate. 4. Elongated umbilical cord appears uncoiled. There is an increased risk for placental abruption with an uncoiled umbilical cord. 5. Elongated umbilical cord closely associated with the neck and intertwining between the legs. Laboratory Results Urine Color Yellow (Yellow) 08/07/24 13:05 Urine Appearance Turbid (CLEAR) A 08/07/24 13:05 Urine pH 6.5 (5-7) 08/07/24 13:05 Ur Specific [place] 1.018 (1.005-1.030) 08/07/24 13:05 Urine Protein Negative (Negative) 08/07/24 13:05 Urine Glucose (UA) Negative (Normal) 08/07/24 13:05 Urine Ketones Negative (Negative) 08/07/24 13:05 Urine Blood 3+ (Negative) A 08/07/24 13:05 Urine Nitrate Negative (Negative) 08/07/24 13:05 Urine Bilirubin Negative (Negative) 08/07/24 13:05 Urine Urobilinogen 1.0 mg/dL (Negative) 08/07/24 13:05 Ur Leukocyte Esterase Trace (Negative) A 08/07/24 13:05 Urine RBC 51-100 /hpf (0-2) H 08/07/24 13:05 Urine WBC 0-5 /hpf (0-5) 08/07/24 13:05 Ur Squamous Epith Cells 6-10 /hpf (0-5) 08/07/24 13:05 Amorphous Sediment 2+ /hpf 08/07/24 13:05 Urine Bacteria None seen /hpf (NONE) 08/07/24 13:05 Hyaline Casts 0-4 /lpf H 08/07/24 13:05 C. trachomatis (PCR) Not detected 08/07/24 13:05 C.trachomatis RNA (TMA) Cancelled 08/07/24 13:05 Chlamydia/GC Comment Cancelled 08/07/24 13:05 N. gonorrhoeae (PCR) Not detected 08/07/24 13:05 N.gonorrhoeae RNA (TMA) Cancelled 08/07/24 13:05 All radiology interpretation(s) finalized by discharge Discharge Plan Discharge Patient Disposition: Home Clinical Impression: Placental abruption Qualifiers: Trimester: second trimester Qualified Code(s): O45.92 - Premature separation of placenta, unspecified, second trimester Condition: Stable Prescriptions: Continued aspirin 81 mg tablet,delayed release (DR/EC) 81 mg PO DAILY No Action promethazine 12.5 mg tablet 12.5 mg PO TID PRN (Reason: Nausea And Vomiting) polyethylene glycol 3350 [ClearLax] 17 gram/dose powder 17 g PO BID PRN (Reason: constapation) Vitamin Plus Low Iron 27 mg iron- 1 mg tablet 1 tab PO DAILY Discharge Orders: Discharge ED (Routine); Ordered 08/07/24 Ordered By: Andreea Szymanski Referrals: Aidan Salinas MD [Physician, SAMPLE ROOM SUPERVISOR] Trish Maravilla FNP [Primary Care Provider, Family Practice] Patient Instructions: Placental Abruption (DC) Activity Restrictions/Additional Instructions: As we discussed, [facility] should reach out to you shortly to help set you up with an appointment with Dr. Salinas on Wednesday for further evaluation. We discussed strict pelvic rest and no heavy lifting. You are able to ambulate around your home. You need to return to the emergency department for onset of severe vaginal bleeding, pain, lightheadedness/dizziness/passing out episodes, or any other concerns you may have. Stand Alone Forms: Work/School Release Print Language: Citizen [place] Coding Level of Care Code ED Medical And Scientific Illustrator for Chg Fwd Documented by User: Hong Combs DO 08/07/24 15:48 HPI - Female Genitourinary General: Chief complaint: Vaginal Bleeding Stated complaint: 17 weeks preg, abb pain, vaginal bleeding Time Seen by Provider: 08/07/24 12:58 Related Data Home Medications ?Medication ?Instructions ?Recorded ?Confirmed aspirin 81 mg tablet,delayed 81 mg PO DAILY 07/22/24 08/07/24 release polyethylene glycol 3350 17 17 g PO BID PRN constapation 07/22/24 08/07/24 gram/dose oral powder (ClearLax) vitamin with calcium 1 tab PO DAILY 07/22/24 08/07/24 no.72-iron 27 mg-folic acid 1 mg tablet ( Vitamins Plus Low Iron) promethazine 12.5 mg tablet 12.5 mg PO TID PRN Nausea And 07/22/24 08/07/24 Vomiting Allergies Allergy/AdvReac Type Severity Reaction Status Date / Time No Known Allergies Allergy Verified 08/07/24 12:52 [facility] ED PFSH: Medical History Painful menstruation Surgical History No pertinent past surgical history Family History Denies family history of Diabetes CAD (coronary artery disease) Psychiatric illness Chronic kidney disease (CKD) Lung disease Cancer Hypertension Stroke Social History Smoking and tobacco/nicotine status: never used tobacco/nicotine Physical Exam Neuro: LISS COMA SCALE: document GCS findings Liss coma scale total score: 15 Course Vital Signs: Vital signs: Vital Signs Temperature 98.3 F 08/07/24 12:47 Pulse Rate 99 08/07/24 14:30 Blood Pressure 110/69 08/07/24 14:30 Pulse Oximetry 97 08/07/24 14:30 Oxygen Delivery Me thod Room Air 08/07/24 14:30 MDM - Female Medical Decision Making Patient was found to have a large marginal retroplacental abruption with hematoma expect OB on-call, Dr. Robledo who recommended bed/pelvic rest and aspirin and to have her follow-up with an proposal consultant as soon as possible. I did speak to Dr. Salinas who is graciously willing to see patient on Wednesday. He had recommended pelvic rest and no heavy lifting. He will order OB/coagulopathy labs on Wednesday and did not recommend anything further from an emergency standpoint. Discussed case with Dr. Combs who agrees with care plan at this time. Chart reviewed and patient discussed with midlevel. Agree with assessment and plan. Lab Data Radiology Impressions Ultrasound 08/07/24 13:06 IMPRESSION: 1. Large marginal retroplacental abruption with hematoma. Abruption extends across the cervical os and posterior to the placenta. There is partial separation of the placenta with the uterine wall. Recommend close evaluation by patient's proposal consultant. 2. Breech. 3. Normal heart rate. 4. Elongated umbilical cord appears uncoiled. There is an increased risk for placental abruption with an uncoiled umbilical cord. 5. Elongated umbilical cord closely associated with the neck and intertwining between the legs. Laboratory Results Urine Color Yellow (Yellow) 08/07/24 13:05 Urine Appearance Turbid (CLEAR) A 08/07/24 13:05 Urine pH 6.5 (5-7) 08/07/24 13:05 Ur Specific [place] 1.018 (1.005-1.030) 08/07/24 13:05 Urine Protein Negative (Negative) 08/07/24 13:05 Urine Glucose (UA) Negative (Normal) 08/07/24 13:05 Urine Ketones Negative (Negative) 08/07/24 13:05 Urine Blood 3+ (Negative) A 08/07/24 13:05 Urine Nitrate Negative (Negative) 08/07/24 13:05 Urine Bilirubin Negative (Negative) 08/07/24 13:05 Urine Urobilinogen 1.0 mg/dL (Negative) 08/07/24 13:05 Ur Leukocyte Esterase Trace (Negative) A 08/07/24 13:05 Urine RBC 51-100 /hpf (0-2) H 08/07/24 13:05 Urine WBC 0-5 /hpf (0-5) 08/07/24 13:05 Ur Squamous Epith Cells 6-10 /hpf (0-5) 08/07/24 13:05 Amorphous Sediment 2+ /hpf 08/07/24 13:05 Urine Bacteria None seen /hpf (NONE) 08/07/24 13:05 Hyaline Casts 0-4 /lpf H 08/07/24 13:05 C. trachomatis (PCR) Not detected 08/07/24 13:05 C.trachomatis RNA (TMA) Cancelled 08/07/24 13:05 Chlamydia/GC Comment Cancelled 08/07/24 13:05 N. gonorrhoeae (PCR) Not detected 08/07/24 13:05 N.gonorrhoeae RNA (TMA) Cancelled 08/07/24 13:05 Discharge Plan Discharge Patient Disposition: Home Clinical Impression: Placental abruption Qualifiers: Trimester: second trimester Qualified Code(s): O45.92 - Premature separation of placenta, unspecified, second trimester Condition: Stable Prescriptions: Continued aspirin 81 mg tablet,delayed release (DR/EC) 81 mg PO DAILY No Action promethazine 12.5 mg tablet 12.5 mg PO TID PRN (Reason: Nausea And Vomiting) polyethylene glycol 3350 [ClearLax] 17 gram/dose powder 17 g PO BID PRN (Reason: constapation) Vitamin Plus Low Iron 27 mg iron- 1 mg tablet 1 tab PO DAILY Discharge Orders: Discharge ED (Routine); Ordered 08/07/24 Ordered By: Andreea Szymanski Referrals: Aidan Salinas MD [Physician, SAMPLE ROOM SUPERVISOR] Trish Maravilla FNP [Primary Care Provider, Family Practice] Patient Instructions: Placental Abruption (DC) Activity Restrictions/Additional Instructions: As we discussed, [facility] should reach out to you shortly to help set you up with an appointment with Dr. Salinas on Wednesday for further evaluation. We discussed strict pelvic rest and no heavy lifting. You are able to ambulate around your home. You need to return to the emergency department for onset of severe vaginal bleeding, pain, lightheadedness/dizziness/passing out episodes, or any other concerns you may have. Stand Alone Forms: Work/School Release Print Language: Citizen [place] Coding Level of Care Code ED Medical And Scientific Illustrator for Ava Lopez
[2024-08-07 13:38] LABS: Bilirubin Urine Negative (Negative); Blood Urine 3+ (Negative); Glucose Urine UA Negative (Normal); Ketones Urine Negative (Negative); Leukocyte Esterase Urine Trace (Negative); Nitrate Urine Negative (Negative); Protein Urine Negative (Negative); Specific Gravity, Urine 1.018 (1.005-1.030); Urine Appearance Turbid (CLEAR); Urine Color Yellow (Yellow); pH Urine 6.5 (5-7)
[2024-08-07 13:43] LABS: Add Urine Microscopic? YES; Bacteria Urine None Seen /hpf; Hyaline Casts Urine 0-4 /lpf; RBC Urine 51-100 /hpf (0-2); WBC Urine 0-5 /hpf (0-5)
[2024-08-07 13:54] LABS: UA Slide Review UA Slide Review Perf
[2024-08-07 13:57] LABS: Add Urine Culture? Yes; Amorphous Sediment Urine 2+ /hpf
[2024-08-07 14:30] VITALS: BP 110/69; PULSE 99; O2SAT 97
[2024-08-07 15:24] LABS: Chlamydia Trachomatis NOT DETECTED; Neisseria Gonorrhea NOT DETECTED
== END 2024-08-07 15:15 | disposition home or self-care (01) ==
PROVIDERS: Emergency Medicine; Emergency Provider Physician Assistant; PCP Nurse Practitioner Family
DX: O45.92 Premature separation of placenta, unspecified, second trimester (principal); Z3A.17 17 weeks gestation of pregnancy
CPT/HCPCS: 76805; 81001; 87086; 87491; 87591; 99284

== ENCOUNTER → 2024-08-09 10:46 | Outpatient (BNVA) | payer MEDICAID, SELFPAY | PROVIDERS: PCP Nurse Practitioner Family; Visit Provider Obstetrics & Gynecology | DX: O45.92 Premature separation of placenta, unspecified, second trimester (principal); Z34.90 Encounter for supervision of normal pregnancy, unspecified, unspecified trimester | CPT/HCPCS: 84315 ==

== ENCOUNTER → 2024-08-14 10:34 | Outpatient (BNVA) | payer MEDICAID, SELFPAY | PROVIDERS: PCP Nurse Practitioner Family; Visit Provider Obstetrics & Gynecology | DX: O45.92 Premature separation of placenta, unspecified, second trimester (principal) | CPT/HCPCS: 84315 ==

== ENCOUNTER 2024-08-26 06:10 | Emergency (ER) | payer MEDICAID, SELFPAY ==
[2024-08-26 06:21] VITALS: BP 128/98; PULSE 93; RESP 18; TEMP 36.6; O2SAT 98
[2024-08-26 06:41] VITALS: BP 133/91; PULSE 84; O2SAT 97
--- NOTE | 2024-08-26 07:10 | USR_ITS ---
PROCEDURE INFORMATION: Exam: US , Limited Exam date and time: 08/26/2024 8:05 AM Age: 23 years old Clinical indication: Lmp or gestational age (in weeks): 19w2d; Antepartum complications; Bleeding; LABS AND CLINICAL REPORTS: Gestational age (Established): 19 w 2 d Estimated due date (Established): 01/18/2025 TECHNIQUE: Imaging protocol: Real-time ultrasound of the maternal uterus with image documentation. Exam focused on the clinical indication. COMPARISON: US OB >= 14 weeks fetus [id number] 08/07/2024 1:41 PM FINDINGS: Gestation: Intrauterine gestation. heart rate: 152 bpm presentation and position: Breech. Placenta: Anterior. Heterogeneous collection adjacent to the placenta measures 6.1 x 6.0 x 4.6 cm. While a direct comparison is difficult, this is likely similar in the interval. Amniotic fluid (Qualitative): Scattered echogenic debris within the amniotic fluid. MATERNAL: Cervix: Cervical length measures 3.4 cm. US/US OB limited [id number] IMPRESSION: 1. Redemonstrated marginal retroplacental abruption with hematoma. 2. Scattered echogenic debris within the amniotic fluid is nonspecific but can be seen with hemorrhage into the amniotic cavity which may be related to placental abruption, meconium contamination, or other etiologies. Recommend close interval follow-up. 3. Breech position.
[2024-08-26 07:16] LABS: Basophils % 0.3 %; Eosinophils # 0.2 10^3/uL (0.0-0.8); Eosinophils % 1.5 %; Hematocrit 36.1 % (36-47); Lymphocytes # 2.2 10^3/uL (0.8-4.8); Lymphocytes % 18.1 %; Mean Corpuscular HGB Conc 34.3 g/dL (30-55); Mean Corpuscular Hemoglobin 34.4 pg (27-33); Mean Corpuscular Volume 100.3 fl (85-98); Mean Platelet Volume 9.5 fL (7.4-10.4); Monocytes # 0.5 10^3/uL (0.2-0.9); Monocytes % 3.9 %; Neutrophils # 9.01 10^3/uL (1.8-7.7); Neutrophils % 75.5 %; Nucleated Red Blood Cells % 0 %; Platelet Count 228 10^3/cmm (157-399); Red Cell Distribution Width 11.9 % (12.1-15.1); White Blood Count 11.91 10^3/uL (3.29-11.43)
--- NOTE | 2024-08-26 07:19 | ED_ITS ---
HPI - 2 General: Chief complaint: Vaginal Bleeding Stated complaint: 19 weeks , bleeding heavily Time Seen by Provider: 08/26/24 06:43 History of Present Illness: Chief complaint is vaginal bleeding in . Patient estimates she is 19 weeks. She states that she did have some vomiting this morning but that has been routine for her. No fever. She states she had placental abruption that was partial and she was put on bedrest at 17 weeks and she did well. She states she was just having a little brown discharge after that but then started having some bright red blood again last night and this morning. She states she does have some pressure sensation in the lower right lower abdomen but no pain. She states that pressure has been there for some time and just was more increased. No fever. No dysuria. Related Data Home Medications ?Medication ?Instructions ?Recorded ?Confirmed aspirin 81 mg tablet,delayed 81 mg PO DAILY 07/22/24 0 08/26/24 release polyethylene glycol 3350 17 17 g PO BID PRN constapati on 07/22/24 08/26/24 gram/dose oral powder (ClearLax) vitamin with calcium 1 tab PO DAILY 07/22/24 08/26/24 no.72-iron 27 mg-folic acid 1 mg tablet ( Vitamins Plus Low Iron) promethazine 12.5 mg tablet 12.5 mg PO TID PRN Nausea And 07/22/24 08/26/24 Vomiting cetirizine 10 mg tablet (Zyrtec) 10 mg PO DAILY PRN Al lergy Symptoms 08/26/24 08/26/24 Allergies Allergy/AdvReac Type Severity Reaction Status Date / Time No Known Allergies Allergy Verified 08/14/24 10:37 PFS ED 2 PFSH: Medical History Painful menstruation Surgical History No pertinent past surgical history Family History Grandfather Heart disease Hypertension Hyperlipidemia Stroke Denies family history of Diabetes CAD (coronary artery disease) Psychiatric illness Chronic kidney disease (CKD) Lung disease Cancer Social History Smoking and tobacco/nicotine status: current every day tobacco/nicotine user (vapes daily-- reduced nicotine to 2.4%) Physical Exam 2 Narrative: EXAM NARRATIVE: Alert sitting up in no acute distress. Normal conjunctiva. Neck is supple. Heart is regular rhythm. Lungs are clear. Abdomen soft with some mild tenderness over the right mid abdomen. No focal McBurney point tenderness. Enlarged uterus which is not tender. No rash on exposed areas. Extremities warm well-perfused. No pitting edema. Intact speech and motor. Course 2 Vital Signs: Vital signs: Vital Signs Temperature 98 F 08/26/24 06:21 Pulse Rate 84 08/26/24 06:41 Respiratory Rate 18 08/26/24 06:21 Blood Pressure 128/70 08/26/24 07:30 Pulse Oximetry 97 08/26/24 06:41 MDM - OB/Uterine Contractions Medical Decision Making Patient presents complaining of some vaginal bleeding in . Patient denies headache chest pain fever. She had some mild vomiting. Blood pressure mildly elevated so we will monitor closely. Appendicitis, UTI, abruption, intrauterine demise, miscarriage, broad differential. I called Dr. Robledo and notified of the patient's being in the ER. I ordered CBC CMP urinalysis and ultrasound. Appendicitis would be unlikely by exam and history. The patient came in because of bleeding not discomfort and when I discussed with her appendicitis among other differentials she states she has had some pressure in the right lower abdomen for some time, at least a week. Ultrasound shows some debris in the amniotic fluid and the continued abruption. Hemoglobin not significantly changed. Patient urine did have blood in it. Patient states she is feeling better and she just went to the bathroom and there is no further bleeding. She confirms she has not had any new abdominal pain or abdominal discomfort that she has not been having. I advised however natural course of appendicitis among others and signs symptoms to watch and return for. I consulted with Dr. Robledo who recommends outpatient management with bedrest and continued aspirin therapy. The patient advised to continue her baby aspirin daily and follow-up with her OB. Advised risk of miscarriage and pelvic rest and return fall precautions Lab Data 08/26/24 06:52 08/26/24 06:52 Radiology Impressions Obstetrics Ultrasound 08/26/24 07:10 IMPRESSION: 1. Redemonstrated marginal retroplacental abruption with hematoma. 2. Scattered echogenic debris within the amniotic fluid is nonspecific but can be seen with hemorrhage into the amniotic cavity which may be related to placental abruption, meconium contamination, or other etiologies. Recommend close interval follow-up. 3. Breech position. Laboratory Results WBC 11.91 10^3/uL (3.29-11.43) H 08/26/24 06:52 RBC 3.60 10^6/uL (3.85-5.65) L 08/26/24 06:52 Hgb 12.40 g/dL (11.27-16.99) 08/26/24 06:52 Hct 36.1 % (36-47) 08/26/24 06:52 MCV 100.3 fl (85-98) H 08/26/24 06:52 MCH 34.4 pg (27-33) H 08/26/24 06:52 MCHC 34.3 g/dL (30-55) 08/26/24 06:52 RDW 11.9 % (12.1-15.1) L 08/26/24 06:52 Plt Count 228 10^3/cmm (157-399) 08/26/24 06:52 MPV 9.5 fL (7.4-10.4) 08/26/24 06:52 Neut % (Auto) 75.5 % 08/26/24 06:52 Lymph % (Auto) 18.1 % 08/26/24 06:52 [place] % (Auto) 3.9 % 08/26/24 06:52 Eos % (Auto) 1.5 % 08/26/24 06:52 Baso % (Auto) 0.3 % 08/26/24 06:52 Neut # (Auto) 9.01 10^3/uL (1.8-7.7) H 08/26/24 06:52 Lymph # (Auto) 2.2 10^3/uL (0.8-4.8) 08/26/24 06:52 [place] # (Auto) 0.5 10^3/uL (0.2-0.9) 08/26/24 06:52 Eos # (Auto) 0.2 10^3/uL (0.0-0.8) 08/26/24 06:52 Baso # (Auto) 0.0 10^3/uL (0.0-0.1) 08/26/24 06:52 Nucleated RBC % (auto) 0 % 08/26/24 06:52 Nucleated RBCs # 0.0 /100WBC 08/26/24 06:52 Sodium 137 mmol/L (136-145) 08/26/24 06:52 Potassium 3.9 mmol/L (3.5-5.1) 08/26/24 06:52 Chloride 104 mmol/L (98-107) 08/26/24 06:52 Carbon Dioxide 19 mmol/L (22-29) L 08/26/24 06:52 Anion Gap 17.9 (5-19) 08/26/24 06:52 BUN 6 mg/dL (6-20) 08/26/24 06:52 Creatinine 0.6 mg/dL (0.5-0.9) 08/26/24 06:52 GFR Calculation 126.2 mL/min (90-130) 08/26/24 06:52 Glucose 81 mg/dL (65-115) 08/26/24 06:52 Calculated Osmolality 281 mOsm/kg (285-295) L 08/26/24 06:52 Calcium 8.8 mg/dL (8.5-10.5) 08/26/24 06:52 Total Bilirubin 0.2 mg/dL (0.15-1.2) 08/26/24 06:52 AST 16 U/L (0-32) 08/26/24 06:52 ALT 10 U/L (0-33) 08/26/24 06:52 Alkaline Phosphatase 56 U/L (35-105) 08/26/24 06:52 Total Protein 6.8 g/dL (6.6-8.7) 08/26/24 06:52 Albumin 3.7 g/dL (3.5-5.2) 08/26/24 06:52 Globulin 3.1 g/dL (1.3-4.6) 08/26/24 06:52 Urine Color Yellow (Yellow) 08/26/24 08:30 Urine Appearance Cloudy (CLEAR) A 08/26/24 08:30 Urine pH 8.0 (5-7) A 08/26/24 08:30 Ur Specific [place] 1.007 (1.005-1.030) 08/26/24 08:30 Urine Protein Negative (Negative) 08/26/24 08:30 Urine Glucose (UA) Negative (Normal) 08/26/24 08:30 Urine Ketones Negative (Negative) 08/26/24 08:30 Urine Blood 2+ (Negative) A 08/26/24 08:30 Urine Nitrate Negative (Negative) 08/26/24 08:30 Urine Bilirubin Negative (Negative) 08/26/24 08:30 Urine Urobilinogen 0.2 mg/dL (Negative) 08/26/24 08:30 Ur Leukocyte Esterase Negative (Negative) 08/26/24 08:30 Urine RBC 11-20 /hpf (0-2) H 08/26/24 08:30 Urine WBC 0-5 /hpf (0-5) 08/26/24 08:30 Ur Squamous Epith Cells 0-5 /hpf (0-5) 08/26/24 08:30 Amorphous Sediment Not Reportable 08/26/24 08:30 Urine Bacteria None seen /hpf (NONE) 08/26/24 08:30 Hyaline Casts 0-4 /lpf H 08/26/24 08:30 All radiology interpretation(s) finalized by discharge Discharge Plan Discharge Patient Disposition: Home Clinical Impression: Placental abruption, Vaginal bleeding Condition: Stable Prescriptions: No Action promethazine 12.5 mg tablet 12.5 mg PO TID PRN (Reason: Nausea And Vomiting) aspirin 81 mg tablet,delayed release (DR/EC) 81 mg PO DAILY polyethylene glycol 3350 [ClearLax] 17 gram/dose powder 17 g PO BID PRN (Reason: constapation) Vitamin Plus Low Iron 27 mg iron- 1 mg tablet 1 tab PO DAILY cetirizine [Zyrtec] 10 mg Tablet 10 mg PO DAILY PRN (Reason: Allergy Symptoms) Discharge Orders: Discharge ED (Routine); Ordered 08/26/24 Ordered By: Eduin Palacios Referrals: Trish Maravilla, [employer] [facility] [Primary Care Provider, Family Practice] Activity Restrictions/Additional Instructions: Follow-up with your OB doctor. Call the office on Wednesday for follow-up. Strict bedrest until cleared by your OB doctor. No intercourse and pelvic rest until cleared. Come back if concerning abdominal pain, excessive bleeding, any worse or concerns. Print Language: Colombian Coding Level of Care Code ED Research And Evaluation Analyst for [employer] Lopez
[2024-08-26 07:30] VITALS: BP 128/70
[2024-08-26 07:40] LABS: Alanine Aminotransferase 10 U/L (0-33); Albumin Level 3.7 g/dL (3.5-5.2); Alkaline Phosphatase 56 U/L (35-105); Anion Gap 17.9 (5-19); Aspartate Amino Transferase 16 U/L (0-32); Blood Urea Nitrogen 6 mg/dL (6-20); Calcium 8.8 mg/dL (8.5-10.5); Carbon Dioxide 19 mmol/L (22-29); Chloride 104 mmol/L (98-107); Globulin 3.1 g/dL (1.3-4.6); Glomerular Filtration Rate 126.2 mL/min (90-130); Glucose 81 mg/dL (65-115); Osmolality Calculated 281 mOsm/kg (285-295); Potassium 3.9 mmol/L (3.5-5.1); Sodium 137 mmol/L (136-145); Total Bilirubin 0.2 mg/dL (0.15-1.2); Total Protein 6.8 g/dL (6.6-8.7)
[2024-08-26] MEDS: acetaminophen 325 mg Tablet 650 MG PO (08:03)
[2024-08-26 08:39] LABS: Bilirubin Urine Negative (Negative); Blood Urine 2+ (Negative); Glucose Urine UA Negative (Normal); Ketones Urine Negative (Negative); Leukocyte Esterase Urine Negative (Negative); Nitrate Urine Negative (Negative); Protein Urine Negative (Negative); Specific Gravity, Urine 1.007 (1.005-1.030); Urine Appearance Cloudy (CLEAR); Urine Color Yellow (Yellow); Urobilinogen Urine 0.2 mg/dL (Negative)
[2024-08-26 08:42] LABS: Add Urine Culture? Yes; Add Urine Microscopic? YES; Bacteria Urine None Seen /hpf; Hyaline Casts Urine 0-4 /lpf; Squamous Epithelial Cell Urine 0-5 /hpf (0-5); WBC Urine 0-5 /hpf (0-5)
[2024-08-26 09:53] VITALS: BP 121/76; PULSE 74; O2SAT 98
== END 2024-08-26 09:53 | disposition home or self-care (01) ==
PROVIDERS: Emergency Provider Emergency Medicine; PCP Nurse Practitioner Family
DX: O45.92 Premature separation of placenta, unspecified, second trimester (principal); Z3A.19 19 weeks gestation of pregnancy; O20.9 Hemorrhage in early pregnancy, unspecified; Z79.82 Long term (current) use of aspirin; F17.290 Nicotine dependence, other tobacco product, uncomplicated
CPT/HCPCS: 12345; 76815; 80053; 81001; 85025; 87086; 99284; J9999

== ENCOUNTER → 2024-08-31 10:16 | Outpatient (BNVA) | payer MEDICAID, SELFPAY | PROVIDERS: PCP Nurse Practitioner Family; Visit Provider Obstetrics & Gynecology | DX: Z34.90 Encounter for supervision of normal pregnancy, unspecified, unspecified trimester (principal) | CPT/HCPCS: 84315 ==

== ENCOUNTER 2024-09-05 10:09 | Outpatient (CLI) | payer MEDICAID, SELFPAY ==
[2024-09-05 12:04] LABS: INR 0.88 (0.8-1.2)
[2024-09-05 12:05] LABS: Partial Thromboplastin Time 30.3 SECONDS (23.9-36.7)
[2024-09-08 02:20] LABS: Anti-Cardiolipin IgA AB <2.0 APL-U/mL
[2024-09-12 21:23] LABS: Factor 5 Leiden Mutation NEGATIVE
== END 2024-09-05 10:10 | disposition home or self-care (01) ==
LOC: LAB 10:12
PROVIDERS: Nurse Practitioner Women's Health; PCP Obstetrics & Gynecology; Visit Provider Internal Medicine
DX: O46.92 Antepartum hemorrhage, unspecified, second trimester (principal); Z3A.21 21 weeks gestation of pregnancy
CPT/HCPCS: 76805; 81241; 85610; 85730; 86147

== ENCOUNTER → 2024-10-02 08:24 | Outpatient (BNVA) | payer MEDICAID, SELFPAY | PROVIDERS: PCP Nurse Practitioner Family; Visit Provider Obstetrics & Gynecology | DX: Z36.9 Encounter for antenatal screening, unspecified (principal) | CPT/HCPCS: 76816; 84315 ==

== ENCOUNTER 2024-10-31 18:50 | Observation (INO) | payer MEDICAID, SELFPAY ==
[2024-10-31 17:54] VITALS: BP 127/75; PULSE 97
--- NOTE | 2024-10-31 18:03 | USR_ITS ---
PROCEDURE INFORMATION: Exam: US , Limited Exam date and time: 10/31/2024 6:16 PM Age: 23 years old Clinical indication: Lmp or gestational age (in weeks): 28 weeks 5 days; Other: Bleeding; ; Additional info: Vaginal bleeding; HX of placental abruption LABS AND CLINICAL REPORTS: Gestational age (Established): 28 w 5 d Estimated due date (Established): 01/18/2025 TECHNIQUE: Imaging protocol: Real-time ultrasound of the maternal uterus with image documentation. Exam focused on the clinical indication. COMPARISON: [place] [id number] 10/02/2024 8:31 AM FINDINGS: Gestation: Intrauterine gestation. heart rate: 157 bpm presentation and position: Fetus is in cephalic position. Placenta: Anterior placenta without evidence of placental abruption or previa. Mature appearing placenta with scattered calcifications and moderate lobulation. Amniotic fluid (Qualitative): Normal amniotic fluid. Moderate vernix. MATERNAL: Cervix: Cervix is challenging to visualize because artifact from the head, but appears closed measuring approximately 3.7 cm in length. US/US OB limited [id number] IMPRESSION: No findings of placenta previa or placental abruption.
[2024-10-31 18:05] VITALS: BMI 23.4
[2024-10-31 19:01] LABS: Hematocrit 32.6 % (36-47); Hemoglobin 11.00 g/dL (11.27-16.99); Mean Corpuscular HGB Conc 33.7 g/dL (30-55); Mean Corpuscular Hemoglobin 33.0 pg (27-33); Mean Corpuscular Volume 97.9 fl (85-98); Nucleated Red Blood Cells % 0 %; Platelet Count 228 10^3/cmm (157-399); Red Blood Count 3.33 10^6/uL (3.85-5.65); White Blood Count 14.35 10^3/uL (3.29-11.43)
--- NOTE | 2024-10-31 19:18 | P.TNLD_ITS ---
OB L&D Triage Visit Information: Date of evaluation: 11/02/24 Comments/Additional reason(s) for visit: 23yo complaining of vaginal bleedin g 28wks. Denies cramping, signs of anemia or decreased movements. Denies other symptoms. Evaluation: Baseline heart rate: 150 Variability: Average (6-10) monitor decelerations: None Laboratory results: Laboratory Tests 10/31/24 18:50 WBC 14.35 H RBC 3.33 L Hgb 11.00 L Hct 32.6 L MCV 97.9 MCH 33.0 MCHC 33.7 RDW 11.7 L Plt Count 228 MPV 9.3 Neut % (Auto) 79.8 Lymph % (Auto) 12.1 [place] % (Auto) 6.0 Eos % (Auto) 1.1 Baso % (Auto) 0.2 Neut # (Auto) 11.46 H Lymph # (Auto) 1.7 [place] # (Auto) 0.9 Eos # (Auto) 0.2 Baso # (Auto) 0.0 Nucleated RBC % (a uto) 0 Nucleated RBCs # 0.0 Vital signs: Vital Signs - 24 hr 10/31/24 17:54 Pulse Rate 97 Blood Pressure 127/75 Comments: CBC,fibrinogen and d dimer ordered BT Rh NEG US ordered pending report. Preliminary: no placental abnormality, live fetus,normal FHR, normal cesario, normal cervical length. No uterine tenderness. scant vag bleeding. Will keep for observation and monitoring. Care CRISTHIAN Calculator Estimated Delivery Date Method Current Current Estimate 01/18/25 Ultrasound #1 29w 0d Specific Issues/Plans * * PLACENTAL ABRUPTION AT 17 WEEKS Additional Care Information: Patient: Priya Julian Unit #: [id number] : 2000 Age/Sex: 23 / F ADM Date: 10/02/24 Loc: [facility] Room/Bed: Attending Dr: Aidan Salinas MD Ordering Provider/Ordering MD: Aidan Salinas MD Date of Service: 10/02/24 Procedure(s): [place] [id number] Accession Number(s): [id number] Report Number: [id number] PROCEDURE INFORMATION: Exam: US , Follow up Exam date and time: 10/02/2024 8:31 AM Age: 23 years old Clinical indication: Screening exam; Routine US, uterus; Additional info: F/u anatomy not vis on prior exam TECHNIQUE: Imaging protocol: Transabdominal ultrasound of the uterus, real time with image documentation. Follow-up (eg, re-evaluation of size by measuring standard growth parameters and amniotic fluid volume, re-evaluation of organ system(s) suspected or confirmed to be abnormal on a previous scan). COMPARISON: US OB >= 14 weeks fetus [id number] 09/05/2024 9:21 AM FINDINGS: Tubes, catheters and devices: Previously described fundal band has since resolved. Gestation: Single live intrauterine gestation as above. heart rate: heart rate of 138 bpm. Placenta: The placenta has an anterior position. Amniotic fluid index: Amniotic fluid index of 12.75 cm. BIOMETRY: Estimated due date (AUA): Estimated date of delivery is 01/15/2025. Estimated weight: Estimated weight of 721 g which is within the 45th percentile. Biparietal diameter (BPD): Biparietal diameter of 6.3 cm which is within the 76th percentile. Head circumference (HC): Head circumference of 23.31 cm which is within the 59th percentile. Abdominal circumference (AC): Abdominal circumference of 19.41 cm which is within the 27th percentile. Femur length (FL): Femur length of 4.56 cm which is within the 54th percentile. MATERNAL: Cervix: The cervix is closed and measures up to 3.25 cm in length. Other findings: Estimated age based on ultrasound is 25 weeks and 0 days. The spine as visualized is within normal limits as was is not visualized on prior examination. US[place] [id number] IMPRESSION: Limited ultrasound as above with certain parameters in question as above. Final Diagnosis Final Diagnosis 1. Vaginal bleeding in : Plan: US shows resolution of early placental clot and no present areas of likely abruptio/ bleeding identified, also normal cervical lenght, no contractions. Labs negative(PT/PTT,fibrinogen,Hgb). Reassuring status. Sent home with instructions. Continue home surveillance for bleeding. Status: Acute Code(s): O46.90 - Antepartum hemorrhage, unspecified, unspecified trimester 2. 28 weeks gestation of : Status: Acute Code(s): Z3A.28 - 28 weeks gestation of Coding Level of Care Code Acute Code for Chg Fwd Diagnoses Vaginal bleeding in O46.90 28 weeks gestation of Z3A.28
[2024-10-31 21:47] LABS: Fibrinogen 354 mg/dL (174-498)
[2024-10-31 23:20] VITALS: BP 117/71; PULSE 74; TEMP 36
[2024-11-01 02:52] VITALS: TEMP 35.7
[2024-11-01 02:53] VITALS: BP 104/65; PULSE 67
[2024-11-01 05:58] VITALS: BP 108/73; PULSE 63
[2024-11-01 06:00] VITALS: BMI 23.4
--- NOTE | 2024-11-01 06:44 | PC.NURSE ---
2 panty liners overnight with bleeding noted, approx 30% covered not completed saturated . bleeding has darkened overnight.
[2024-11-01 08:42] VITALS: BP 128/85; PULSE 76
[2024-11-01 09:25] VITALS: BP 128/85; PULSE 86; RESP 16; TEMP 37.2; O2SAT 98
== END 2024-11-01 08:40 | disposition home or self-care (01) ==
LOC: OPOB 18:51 → OBGYN 18:51
PROVIDERS: Obstetrics & Gynecology; Admitting Provider Obstetrics & Gynecology; PCP Nurse Practitioner Family; Visit Provider Obstetrics & Gynecology
DX: O46.90 Antepartum hemorrhage, unspecified, unspecified trimester (principal); Z3A.00 Weeks of gestation of pregnancy not specified
CPT/HCPCS: 12345; 36415; 59025; 76815; 85025; 85378; 85384; 99211; G0378; Q0162

== ENCOUNTER → 2024-11-08 10:17 | Outpatient (BNVA) | payer MEDICAID, SELFPAY | PROVIDERS: PCP Nurse Practitioner Family; Visit Provider Obstetrics & Gynecology | DX: Z34.90 Encounter for supervision of normal pregnancy, unspecified, unspecified trimester (principal); Z3A.28 28 weeks gestation of pregnancy | CPT/HCPCS: 82950; 84315; 85025 ==

== ENCOUNTER → 2024-11-21 15:17 | Outpatient (BNVA) | payer MEDICAID, SELFPAY | PROVIDERS: PCP Nurse Practitioner Family; Visit Provider Nurse Practitioner Women's Health | DX: Z34.90 Encounter for supervision of normal pregnancy, unspecified, unspecified trimester (principal); R82.71 Bacteriuria | CPT/HCPCS: 84315; 87086 ==

== ENCOUNTER 2024-12-05 10:00 | Outpatient (CLI) | payer MEDICAID, SELFPAY ==
[2024-12-05] VITALS (10 sets, daily range): BP systolic 101–132; BP diastolic 57–93; PULSE 71–94; RESP 16; BMI 24.5
[2024-12-05 11:17] LABS: Glucose Urine UA Negative (Normal); Nitrate Urine Negative (Negative); Specific Gravity, Urine 1.003 (1.005-1.030)
== END 2024-12-05 12:27 | disposition home or self-care (01) ==
LOC: OPOB 10:04 → OBGYN 10:05
PROVIDERS: Visit Provider Obstetrics & Gynecology
DX: O26.859 Spotting complicating pregnancy, unspecified trimester (principal); Z3A.00 Weeks of gestation of pregnancy not specified
CPT/HCPCS: 59025; 81001; 99211

== ENCOUNTER → 2024-12-07 14:25 | Outpatient (BNVA) | payer MEDICAID, SELFPAY | PROVIDERS: Visit Provider Nurse Practitioner Women's Health | DX: Z34.90 Encounter for supervision of normal pregnancy, unspecified, unspecified trimester (principal) | CPT/HCPCS: 84315 ==

== ENCOUNTER 2024-12-08 13:05 | Outpatient (CLI) | payer MEDICAID, SELFPAY ==
--- NOTE | 2024-12-08 13:00 | USR_ITS ---
PROCEDURE INFORMATION: Exam: US , Follow up Exam date and time: 12/08/2024 1:28 PM Age: 24 years old Clinical indication: Screening exam; Routine US, uterus; Additional info: Z34.90 - encounter for supervision of normal , u. . . , LABS AND CLINICAL REPORTS: Gestational age (Established): 34 w 1 d Estimated due date (Established): 01/18/2025 TECHNIQUE: Imaging protocol: Transabdominal ultrasound of the uterus, real time with image documentation. Follow-up (eg, re-evaluation of size by measuring standard growth parameters and amniotic fluid volume, re-evaluation of organ system(s) suspected or confirmed to be abnormal on a previous scan). COMPARISON: US OB limited [id number] 10/31/2024 6:16 PM FINDINGS: Gestation: Intrauterine gestation. heart rate: 143 bpm Amniotic fluid index: ASHANTI is 20.54 cm. Amniotic fluid index 20.5 which is within normal limits. BIOMETRY: Estimated weight: 2620.54 g. EFW by AC, BPD, FL, HC, [place] 1985 Biparietal diameter (BPD): 8.95 cm. EGA (BPD) is 36 w 2 d. 93.7 % percentile Head circumference (HC): 32.13 cm. EGA (HC) is 36 w 2 d. 68.8 % percentile Abdominal circumference (AC): 31.1 cm. EGA (AC) is 35 w 0 d. 78.6 % percentile Femur length (FL): 6.76 cm. EGA (FL) is 34 w 5 d. 57.2 % percentile HC/AC: 1.03. (Normal range: 0.93 - 1.09) FL/HC: 21.04. (Normal range: 20.1 - 22.19) FL/BPD: 75.53. (Normal range: 71 - 87) FL/AC: 21.74. (Normal range: 20 - 24) MATERNAL: Cervix: Cervical length measures 4 cm. Closed. US[place] [id number] IMPRESSION: Interval growth. Normal amniotic fluid index. Findings as above.
== END 2024-12-08 13:06 | disposition home or self-care (01) ==
LOC: RAD 13:06
PROVIDERS: Visit Provider Obstetrics & Gynecology
DX: Z34.93 Encounter for supervision of normal pregnancy, unspecified, third trimester (principal)
CPT/HCPCS: 76816

== ENCOUNTER → 2024-12-20 14:12 | Outpatient (BNVA) | payer MEDICAID, SELFPAY | PROVIDERS: Visit Provider Nurse Practitioner Women's Health | DX: Z34.90 Encounter for supervision of normal pregnancy, unspecified, unspecified trimester (principal) | CPT/HCPCS: 84315 ==

== ENCOUNTER 2024-12-23 13:25 | Outpatient (CLI) | payer MEDICAID, SELFPAY ==
[2024-12-23] VITALS (12 sets, daily range): BP systolic 124–140; BP diastolic 78–97; PULSE 81–101; RESP 16; BMI 25.9
[2024-12-23 13:47] LABS: Glucose Urine UA Negative (Normal); Nitrate Urine Negative (Negative); Specific Gravity, Urine 1.011 (1.005-1.030)
--- NOTE | 2024-12-23 14:23 | USR_ITS ---
PROCEDURE INFORMATION: Exam: US , Limited Exam date and time: 12/23/2024 2:47 PM Age: 24 years old Clinical indication: complicated by abdominal or pelvic pain; Lower; Third trimester (>=28 weeks 0 days); Gestational age or lmp: 36w2d; ; Additional info: Looking for placental abrubtion LABS AND CLINICAL REPORTS: Gestational age (Established): 36 w 2 d Estimated due date (Established): 01/18/2025 TECHNIQUE: Imaging protocol: Real-time ultrasound of the maternal uterus with image documentation. Exam focused on the clinical indication. COMPARISON: [place] [id number] 12/08/2024 1:28 PM FINDINGS: Gestation: Single viable IUP noted in cephalic presentation. Anterior placenta noted. No evidence of hemorrhage. heart rate: 145 bpm MATERNAL: Cervix: Cervical length measures 4 cm. US/US OB limited [id number] IMPRESSION: Viable IUP. No worrisome abnormality noted.
== END 2024-12-23 16:19 | disposition home or self-care (01) ==
LOC: OPOB 13:32 → OBGYN 13:33
PROVIDERS: Visit Provider Family Medicine
DX: O26.859 Spotting complicating pregnancy, unspecified trimester (principal); Z3A.00 Weeks of gestation of pregnancy not specified; R10.9 Unspecified abdominal pain
CPT/HCPCS: 59025; 76815; 81001; 99211

== ENCOUNTER 2024-12-27 10:19 | Inpatient (IN) | payer MEDICAID, SELFPAY ==
[2024-12-27] VITALS (69 sets, daily range): BP systolic 103–169; BP diastolic 58–93; PULSE 69–141; RESP 18; TEMP 37–37.1; O2SAT 88–99; BMI 26.3
[2024-12-27 09:38] LABS: Nitrazine Paper, PH Inconclusive
[2024-12-27 10:33] LABS: Hematocrit 35.0 % (36-47); Hemoglobin 11.90 g/dL (11.27-16.99); Mean Corpuscular HGB Conc 34.0 g/dL (30-55); Mean Corpuscular Hemoglobin 31.8 pg (27-33); Mean Corpuscular Volume 93.6 fl (85-98); Nucleated Red Blood Cells % 0 %; Platelet Count 292 10^3/cmm (157-399); Red Blood Count 3.74 10^6/uL (3.85-5.65); White Blood Count 16.65 10^3/uL (3.29-11.43)
[2024-12-27] MEDS: penicillin g potassium 5,000,000 UNIT in sodium chloride 0.9% (plus) 100 ML 100 UNIT IV (11:00)
--- NOTE | 2024-12-27 12:10 | P.HP_ITS ---
Providers/Chief Complaint 2 Admitting Physician: Reji Gray MD Chief Complaint: ctx History of Present Illness Priya Julian is a 24 year old at 36.6 weeks gestation by 17-week inconsistent with unsure LMP. Her has been complicated by a large placental abruption at 17 weeks gestation, smoker, THC use, prolonged rupture of membranes. The patient presented to labor and delivery triage on the morning of 12/27/2024 due to contractions. She noticed some leaking of fluid around noon on 12/26/2024. She then began to have contractions that evening. The contractions worsened and by the time of presentation to triage she was 390/-2. She had bloody show and a positive actim prom. For this reason the patient was admitted. The patient denies any chest pains, shortness of breath, nausea, vomiting, diarrhea, constipation, dysuria, fever, cough. She has been luh every 3 to 4 minutes. Contractions are category 1 with heart tones in the mid 140s with moderate variability good accelerations. Medications/Allergies Home Medications ?Medication ?Instructions ?Recorded ?Confirmed ?Last Taken ?Type polyethylene glycol 3350 17 17 g PO BID PRN constapati on 07/22/24 12/23/24 Unknown History gram/dose oral powder (ClearLax) cetirizine 10 mg tablet (Zyrtec) 10 mg PO DAILY PRN Al lergy Symptoms 08/26/24 12/23/24 08/25/24 History vitamins with calcium 1 tab PO DAILY #60 tabs 10/02/24 12/23/24 10/31/24 Rx no.72-iron 27 mg-folic acid 1 mg tablet ( Vitamins Plus Low Iron) famotidine 20 mg tablet (Pepcid) 20 mg PO BID #60 tabs 11/21/24 12/23/24 Unknown Rx promethazine 12.5 mg tablet 12.5 mg PO TID PRN Nausea And 12/07/24 12/23/24 Unknown Rx Vomiting #30 tabs Allergies Allergy/AdvReac Type Severity Reaction Status Date / Time No Known Allergies Allergy Verified 12/20/24 14:10 PFSH Acute 2 PFSH: Medical History Painful menstruation Surgical History No pertinent past surgical history Family History Grandfather Heart disease Hypertension Hyperlipidemia Stroke Denies family history of Diabetes CAD (coronary artery disease) Psychiatric illness Chronic kidney disease (CKD) Lung disease Cancer Social History (Updated 12/27/24 @ 13:29 by Reji Gray MD) Smoking and tobacco/nicotine status: current every day tobacco/nicotine user (vapes daily-- reduced nicotine to 2.4%) Substance/Drug Use: current Substance/Drug use type: Marijuana Female Reproductive History: : 1 Vitals/I&O/Wt Last Vital Signs Temp 98.6 F 12/27/24 11:10 Pulse 83 12/27/24 11:33 Resp 18 12/27/24 11:10 BP 122/79 12/27/24 11:33 Pulse Ox 99 12/27/24 11:20 O2 Del Method Room Air 12/27/24 09:09 Weight last 48 hrs Weight 168 lb Physical Exam 2 Narrative: General: Alert and oriented x3 Eyes: Pupils equal round and reactive to light and accommodation Mouth: Mucous membranes moist, pharynx non-erythematous Cardiac: Regular rate and rhythm without murmurs Lungs: Clear to auscultation bilaterally without wheezes, crackles or rhonchi Abdomen: Soft, non-tender, fundus consistent with gestational age Extremities: Trace edema in the bilateral lower extremities Data 12/27/24 10:10 A&P Assessment and plan 1. , unspecified gestational age: The patient is doing well at this time. She is luh every 2 to 4 minutes with a category 1 tracing. She has made change from 3 cm to 5 cm dilation. She is currently receiving penicillin for GBS prophylaxis as a swab had not been done yet. We did send a swab prior to starting the prophylaxis. If the patient stops making cervical change, we will add Pitocin for augmentation of labor. Currently she is not showing signs of infection, however she does have prolonged rupture of membranes so we will need to watch for signs of this. The patient admits to using THC and we will send a urine drug screen down prior to giving any IV pain medications. The patient may have a labor and epidural if she would like. Currently I am not seeing any signs of bleeding that would be concerning for a new placental abruption. Certainly we will watch for signs of this clinically. The patient is in agreement with the current plan of care. All questions were answered. Reseed with routine intrapartum care otherwise. 2. Premature rupture of membranes: 3. Nicotine abuse: 4. Tetrahydrocannabinol (THC) dependence: PDMP PDMP Reviewed: Not Reviewed Attestations 2 Medical Necessity Statement*: The patient will be here for greater than 2 midnights due to routine intrapartum and management of labor and delivery. Coding Level of Care Code Acute Code for Chg Fwd Diagnoses , unspecified gestational age Z34.90 Weeks of gestation: unspecified Premature rupture of membranes O42.90 Nicotine abuse Z72.0 Tetrahydrocannabinol (THC) dependence F12.20
[2024-12-27] MEDS: fentaNYL 50 mcg/mL INJ 2mL IVP (13:03)
[2024-12-27 13:17] LABS: PCP Screen Urine Negative (Negative)
[2024-12-27] MEDS: PENICILLIN G POTASSIUM 2,500,000 UNIT/50 ML BAG 50 UNIT IV ×2 (15:09→18:44)
[2024-12-27] MEDS: ROPivacaine premix 200 MG/100 ML PREMIX 13 MG EPIDURAL ×2 (15:24→21:09)
--- NOTE | 2024-12-27 15:43 | P.ANESASSM_ITS ---
Pre-Anesthetic Assessment Height/Weight: Height 5 ft 7 in Weight 168 lb Temp Pulse Resp BP Pulse Ox O2 Del Method 98.8 F 80 18 127/77 91 Room Air 12/27/24 14:43 12/27/24 15:38 12/27/24 15:04 12/27/24 15:38 12/27/24 15:16 12/27/24 10:47 Preop Diagnosis: IUP Was Beta Gabe taken within 24 hours: N/A Was Clonidine taken within 24 hours: N/A Social No alcohol and No tobacco Exam alert, oriented x 3, clear to auscultation bilaterally and regular rate & rhythm Airway Submandibular: within normal limits Cervical ROM: within normal limits Mallampati: Class II Dentition: full Anesthetic Plan ASA status: 2 Anesthesia: Regional (specify below) Other: G1, P0 here for active labor requesting epidural States that early in she was told she had a placental abruption No issues with baby Patient is extremely nervous today Labs reviewed and acceptable for procedure, THC positive Plan for routine epidural placement Medications/Allergies Home Medications ?Medication ?Instructions ?Recorded ?Confirmed ?Last Taken ?Type polyethylene glycol 3350 17 17 g PO BID PRN constapati on 07/22/24 12/23/24 Unknown History gram/dose oral powder (ClearLax) cetirizine 10 mg tablet (Zyrtec) 10 mg PO DAILY PRN Al lergy Symptoms 08/26/24 12/23/24 08/25/24 History vitamins with calcium 1 tab PO DAILY #60 tabs 10/02/24 12/23/24 10/31/24 Rx no.72-iron 27 mg-folic acid 1 mg tablet ( Vitamins Plus Low Iron) famotidine 20 mg tablet (Pepcid) 20 mg PO BID #60 tabs 11/21/24 12/23/24 Unknown Rx promethazine 12.5 mg tablet 12.5 mg PO TID PRN Nausea And 12/07/24 12/23/24 Unknown Rx Vomiting #30 tabs Allergies Allergy/AdvReac Type Severity Reaction Status Date / Time No Known Allergies Allergy Verified 12/20/24 14:10 Current Medications Generic Name Dose Route Start Last Admin Trade Name Freq PRN Reason Stop Dose Admin Fentanyl 25 - 100 mcg 12/27/24 10:24 12/27/24 13:03 Fentanyl 50 Mcg/Ml Inj 2ml IVP 25 mcg Q1H PRN Administration SEVERE PAIN Dextrose/Lactated Ringer's 1,000 mls @ 125 mls/hr 12/27/24 10:30 12/27/24 11:01 Dextrose 5%-Lactated Ringers IV 125 mls/hr .Q8H ERASMO Administration Penicillin G Potassium 2,500,000 unit in 50 mls @ 50 mls/hr 12/27/24 14:30 12/27/24 15:09 IV 50 mls/hr Q4H ERASMO Administration Protocol Lactated Ringer's 1,000 mls @ 999 mls/hr 12/27/24 14:11 12/27/24 15:26 Lactated Ringers IV Infused .Q1H1M PRN Infusion See label comments Ropivacaine 200 mg in 100 mls @ 10 mls/hr 12/27/24 14:15 12/27/24 15:24 Naropin Premix EPIDURAL 13 mls/hr .Q10H ERASMO Administration PFSH Anesthesia Medical History (Updated 12/27/24 @ 13:33 by Reji Gray MD) Painful menstruation Surgical History No pertinent past surgical history Family History Grandfather Heart disease Hypertension Hyperlipidemia Stroke Denies family history of Diabetes CAD (coronary artery disease) Psychiatric illness Chronic kidney disease (CKD) Lung disease Cancer Social History (Updated 12/27/24 @ 13:29 by Reji Gray MD) Smoking and tobacco/nicotine status: current every day tobacco/nicotine user (vapes daily-- reduced nicotine to 2.4%) Substance/Drug Use: current Substance/Drug use type: Marijuana Female Reproductive History : 1 Data Anesthesia 12/27/24 10:10 Short CBC 12/27/24 Range/Units 10:10 WBC 16.65 H (3.29-11.43) 10^3/uL Hgb 11.90 (11.27-16.99) g/dL Hct 35.0 L (36-47) % MCV 93.6 (85-98) fl Plt Count 292 (157-399) 10^3/cmm Neut % (Auto) 84.1 % Neut # (Auto) 14.00 H (1.8-7.7) 10^3/uL Blood Bank 12/27/24 10:10 Blood Type O Positive Rho(D) Type Rh positive Antibody Screen Negative
--- NOTE | 2024-12-27 15:44 | P.ANES_ITS ---
Anesthesia Procedures Procedure/Date: 12/27/24 Epidural: Time Out Performed: Yes Consents Signed: Procedure Consent Consent: requested by attending/covering physician and from patient Lumbar Level: L3-L4 Epidural position: sitting Epidural procedure: sterile prep of area, 1% lidocaine to numb the area, 18 g needle, negative for paresthesia p assed, neg for paresthesia, test dose given, 1.5% xylocaine 1:200k epi, 0.2% Ropivacaine bolus ml, placed PCEA, no systemic response, sterile dressing applied and L.U.D. no apparent complications Additional Comments: Ropivacaine 0.2% set at 10 mL/h
[2024-12-27] MEDS: ondansetron 2 mg/ML SDV 2 mL 4 MG IVP ×2 (17:51→22:32)
[2024-12-27] MEDS: metoclopramide 5 mg/mL SDV 2 mL 10 MG IV (19:30)
[2024-12-27] MEDS: oxytocin 30 UNIT/500 ML BAG 600 UNIT IV (22:53)
--- NOTE | 2024-12-27 23:05 | PM.DELIVERY ---
Delivery Note: Date of delivery: December 27, 2024 Pre-delivery diagnoses: 37 w 6 d spontaneous rupture of membranes active labor Post-delivery diagnoses: 37 w 6 d spontaneous rupture of membranes active labor vaginal delivery repair of second-degree perineal laceration Procedure: vaginal delivery repair of second-degree perineal laceration Op report anesthesia: Epidural Delivering Physician: Aidan Salinas MD Estimated blood loss (mL): 300 Findings: , vigorous cord gases and blood obtained normal placenta and cord second-degree perineal laceration repaired EBL: 300 cc no complications Pre-Delivery Course: normal labor course fetus reassuring throughout Delivery: vaginal Post-Delivery Status: good History History History 1 Term 0 0 Miscarriages/Ectopic 0 Living Children 0 A&P Assessment and plan 1. Vaginal delivery: PDMP PDMP Reviewed: Not Reviewed Coding Level of Care Code Acute Code for Chg Fwd Diagnoses Vaginal delivery O80
[2024-12-28] VITALS (12 sets, daily range): BP systolic 111–137; BP diastolic 62–83; PULSE 75–92; RESP 15–16; TEMP 36.6–36.8; O2SAT 98
[2024-12-28] MEDS: benzocaine-menthol 78 gm Canister 1 SPRAY TOPICAL (01:47)
[2024-12-28] MEDS: HYDROcodone-acetaminophen 5-325 mg Tablet PO ×2 (01:48→23:13)
[2024-12-28] MEDS: PRENATAL VIT NO.130/IRON/FOLIC 1 EACH TABLET PO (05:01)
[2024-12-28 11:16] LABS: Hematocrit 28.1 % (36-47); Hemoglobin 9.40 g/dL (11.27-16.99); Mean Corpuscular HGB Conc 33.5 g/dL (30-55); Mean Corpuscular Hemoglobin 31.4 pg (27-33); Mean Corpuscular Volume 94.0 fl (85-98); Platelet Count 237 10^3/cmm (157-399); Red Blood Count 2.99 10^6/uL (3.85-5.65); White Blood Count 15.63 10^3/uL (3.29-11.43)
--- NOTE | 2024-12-28 14:05 | P.PN_ITS ---
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 Fundus firm Ext normal Urinary Catheter Management: Quiñones Latex: Cath Placed During This Visit: yes, but has since been removed by the nurse Reason for Continuing Indwelling Catheter: Decision to DC Catheter Urinary Catheter Date of Insertion: 12/27/24 Urinary Catheter Time of Insertion: 16:35 Date Urinary Catheter Removed: 12/27/24 Time Urinary Catheter Discontinued: 22:28 Data 12/28/24 11:00 A&P Assessment and plan 1. Vaginal delivery: 2. Anemia: encourage iron 1-2 tabs daily and protein-rich foods PDMP PDMP Reviewed: Not Reviewed Attestations 2 Medical Necessity Statement*: patient s/p vaginal delivery Coding Level of Care Code Acute Code for Chg Fwd Diagnoses Vaginal delivery O80 Anemia D64.9
--- NOTE | 2024-12-28 14:05 | P.PN_ITS ---
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 fundus firm Ext: no edema; nontender Urinary Catheter Management: Quiñones Latex: Cath Placed During This Visit: yes, but has since been removed by the nurse Reason for Continuing Indwelling Catheter: Decision to DC Catheter Urinary Catheter Date of Insertion: 12/27/24 Urinary Catheter Time of Insertion: 16:35 Date Urinary Catheter Removed: 12/27/24 Time Urinary Catheter Discontinued: 22:28 Data 12/28/24 11:00 A&P Assessment and plan 1. Vaginal delivery: PPD #1 , repair of second-degree perineal laceration doing well normal course continue care PDMP PDMP Reviewed: Not Reviewed Attestations 2 Medical Necessity Statement*: patient s/p vaginal delivery, for care Coding Level of Care Code Acute Code for Chg Fwd Diagnoses Vaginal delivery O80
[2024-12-29] MEDS: PRENATAL VIT NO.130/IRON/FOLIC 1 EACH TABLET PO (05:36)
[2024-12-29 05:37] VITALS: BP 121/83; PULSE 86; RESP 16; TEMP 36.7; O2SAT 98
[2024-12-29 09:54] VITALS: BP 127/82; PULSE 80; RESP 17; TEMP 36.8; O2SAT 97
--- NOTE | 2024-12-29 13:10 | P.DS_ITS ---
Discharge Providers [employer] Date of Admission: 12/27/24 10:19 Date of Discharge: 12/29/24 Attending Provider at Admission: Aidan Salinas MD Attending Provider at Discharge: Aidan Salinas MD Consults: none Primary [employer]: Aidan Salinas MD Diagnoses at Discharge Discharge Diagnosis 1. Vaginal delivery: Details from hospital stay: 24 y.o. G1 [facility] January 18, 2025 presented to L&D c/o painful uterine contractions patient was at 3 cm patient progressed to complete dilatation fetus was reassuring throughout She delivered vaginally without any complications had repair of second-degree perineal laceration patient did well and was discharged to home on the first day Reason for Visit Reason for Visit: ctx Brief History: 24 y.o. G1 [facility] January 18, 2025 presented to L&D c/o painful uterine contractions Hospital Course Hospital Course y.o. G1 EDC January 18, 2025 presented to L&D c/o painful uterine contractions patient was at 3 cm patient progressed to complete dilatation fetus was reassuring throughout She delivered vaginally without any complications had repair of second-degree perineal laceration patient did well and was discharged to home on the first day Information Peripartum Data: Delivery Method: Vaginal Laceration description: Perineal - 2nd Degree Episiotomy description: None complic ations: none Physical Exam Narrative: afebrile, VS normal comfortable, awake, alert Lungs: clear Cor: RRR Abd: soft, nontender. fundus firm Ext: no edema; nontender Urinary Catheter Management: Quiñones Latex: Cath Placed During This Visit: yes, but has since been removed by the nurse Reason for Continuing Indwelling Catheter: Decision to DC Catheter Urinary Catheter Date of Insertion: 12/27/24 Urinary Catheter Time of Insertion: 16:35 Date Urinary Catheter Removed: 12/27/24 Time Urinary Catheter Discontinued: 22:28 History History History 1 Term 0 0 Miscarriages/Ectopic 0 Living Children 0 Discharge Data Studies Completed and Pending Laboratory Results WBC 15.63 10^3/uL (3.29-11.43) H 12/28/24 11:00 RBC 2.99 10^6/uL (3.85-5.65) L 12/28/24 11:00 Hgb 9.40 g/dL (11.27-16.99) L 12/28/24 11:00 Hct 28.1 % (36-47) L 12/28/24 11:00 MCV 94.0 fl (85-98) 12/28/24 11:00 MCH 31.4 pg (27-33) 12/28/24 11:00 MCHC 33.5 g/dL (30-55) 12/28/24 11:00 RDW 12.2 % (12.1-15.1) 12/28/24 11:00 Plt Count 237 10^3/cmm (157-399) 12/28/24 11:00 MPV 10.3 fL (7.4-10.4) 12/28/24 11:00 Neut % (Auto) 84.1 % 12/27/24 10:10 Lymph % (Auto) 10.6 % 12/27/24 10:10 [place] % (Auto) 4.3 % 12/27/24 10:10 Eos % (Auto) 0.3 % 12/27/24 10:10 Baso % (Auto) 0.2 % 12/27/24 10:10 Neut # (Auto) 14.00 10^3/uL (1.8-7.7) H 12/27/24 10:10 Lymph # (Auto) 1.8 10^3/uL (0.8-4.8) 12/27/24 10:10 [place] # (Auto) 0.7 10^3/uL (0.2-0.9) 12/27/24 10:10 Eos # (Auto) 0.1 10^3/uL (0.0-0.8) 12/27/24 10:10 Baso # (Auto) 0.0 10^3/uL (0.0-0.1) 12/27/24 10:10 Nucleated RBC % (auto) 0 % 12/27/24 10:10 Nucleated RBCs # 0.0 /100WBC 12/27/24 10:10 Insulin-like GF I Positive 12/27/24 09:28 Fluid pH (paper) Inconclusive 12/27/24 09:28 Urine Opiates Screen Negative ng/mL (Negative) 12/27/24 12:52 Ur Barbiturates Screen Negative ng/mL (Negative) 12/27/24 12:52 Ur Phencyclidine Scrn Negative ng/mL (Negative) 12/27/24 12:52 Ur Amphetamines Screen Negative ng/mL (Negative) 12/27/24 12:52 U Benzodiazepines Scrn Negative ng/mL (Negative) 12/27/24 12:52 Urine Cocaine Screen Negative ng/mL (Negative) 12/27/24 12:52 U Marijuana (THC) Screen Positive ng/mL (Negative) H 12/27/24 12:52 Blood Type O Positive 12/27/24 10:10 Rho(D) Type Rh positive 12/27/24 10:10 Antibody Screen Negative 12/27/24 10:10 Procedures Performed vaginal delivery repair of second-degree perineal laceration Vitals Last Vital Signs Temp 97.8 F 12/29/24 16:00 Pulse 106 H 12/29/24 16:00 Resp 16 12/29/24 16:00 BP 136/88 12/29/24 16:00 Pulse Ox 98 12/29/24 16:00 O2 Del Method Room Air 12/29/24 16:00 Results Labs OB ([facility]): Obstetrics US 12/23/24 Blood Type O Positive 12/27/24 Antibody Screen Negative 12/27/24 Hct, (36-47) 28.1 % L 12/28/24 Hgb, (11.27-16.99) 9.40 g/dL L 12/28/24 Rho(D) Type Rh positive 12/27/24 Plt Count, (157-399) 237 10^3/cmm 12/28/24 Glucose 1 Hr 50 gm, (85-140) 132 mg/dL 11/08/24 Ser , Semi-Qnt 10088.00 mIU/mL 07/22/24 Urine Opiates Screen, (Negative) Negative ng/mL 5 Ur Barbiturates Screen, (Negative) Negative ng/mL 12/27 Ur Phencyclidine Scrn, (Negative) Negative ng/mL Ur Amphetamines Screen, (Negative) Negative ng/mL 12/27 U Benzodiazepines Scrn, (Negative) Negative ng/mL 12/27 Urine Cocaine Screen, (Negative) Negative ng/mL 5 U Marijuana (THC) Screen, (Negative) Positive ng/mL H 04/22 Micro Urine Specimen 11/21/24 Discharge Plan Discharge Patient Disposition: Home Condition: Stable Prescriptions: Continued famotidine [Pepcid] 20 mg tablet 20 mg PO BID Qty: 60 2RF Vitamin Plus Low Iron 27 mg iron- 1 mg tablet 1 tab PO DAILY Qty: 60 3RF Rx Instructions: take once daily promethazine 12.5 mg tablet 12.5 mg PO TID PRN (Reason: Nausea And Vomiting) Qty: 30 3RF Rx Instructions: take up to three times daily polyethylene glycol 3350 [ClearLax] 17 gram/dose powder 17 g PO BID PRN (Reason: constapation) cetirizine [Zyrtec] 10 mg Tablet 10 mg PO DAILY PRN (Reason: Allergy Symptoms) Discharge Order = DC NOW: Discharge Order (Routine); Ordered 12/29/24 Ordered By: Aidan Salinas Referrals: Leni Lim NP [Nurse Practitioner, [employer]] - 02/07/25 8:15 am Referral Note: * Your 6 week appointment on 02/07/2025 at 8:15am Patient Instructions: Depression (DC), Opioid Safety (DC), Preeclampsia and Eclampsia After Delivery (GEN), Hemorrhage (DC), OB Discharge Report, OB Food/Drug Interaction Guide, Opioid Safety, OB Home Care, OB Vaginal Deliveries - [facility], Patient Portal & [facility] Instructions, Abnormal Bleeding Discharge Attestations [employer] Time Spent in Discharge Care*: less than 30 min Coding Level of Care Code Acute Code for Chg Fwd Diagnoses Vaginal delivery O80
--- NOTE | 2024-12-29 13:22 | ANE.PACU2 ---
Inpatient post-anesthesia follow up: Airway intact: Yes Vital signs: Temperature 98.2 F Pulse Rate 80 Respiratory Rate 17 Blood Pressure 127/82 Pulse Oximetry 97 Oxygen Delivery Me thod Room Air Oxygen Flow Rate Fraction of Inspir ed Oxygen Hydration adequate: Yes Nausea and vomiting: No Pain level: 1 Mental status: Baseline Epidural Start/End: Epidural Start Date: 12/27/24 Epidural Start Time: 15:15 Epidural End Date: 12/28/24 Epidural End Time: 00:01
[2024-12-29 16:00] VITALS: BP 136/88; PULSE 106; RESP 16; TEMP 36.6; O2SAT 98
[2024-12-29] MEDS: HYDROcodone-acetaminophen 5-325 mg Tablet PO (16:52)
== END 2024-12-29 17:00 | disposition home or self-care (01) | DRG 806 ==
LOC: OPOB 10:19 → OBGYN 10:19
PROVIDERS: Family Medicine; Admitting Provider Obstetrics & Gynecology; Visit Provider Obstetrics & Gynecology
DX: O60.14X0 Preterm labor third trimester with preterm delivery third trimester, not applicable or unspecified (principal); O99.324 Drug use complicating childbirth; Z37.0 Single live birth; O99.824 Streptococcus B carrier state complicating childbirth; F12.90 Cannabis use, unspecified, uncomplicated; O99.334 Smoking (tobacco) complicating childbirth; F17.290 Nicotine dependence, other tobacco product, uncomplicated; O70.1 Second degree perineal laceration during delivery; Z3A.36 36 weeks gestation of pregnancy; O90.81 Anemia of the puerperium; D64.9 Anemia, unspecified
CPT/HCPCS: 36415; 51702; 59025; 59409; 80306; 83986; 84112; 85025; 85027; 86850; 86900; 87081; 96374; 99211; J2405; J2540; J2590; J2765; J2795; J3010; J7120; J7121; J9999